=== PATIENT | female | born 1940 | race Caucasian/White ===

== ENCOUNTER 2017-11-01 16:48 | Inpatient (IN) ==
[2017-11-01 17:26] LABS: Basophils % 0.5 %; Eosinophils # 0.1 K/mcL (0.0-0.6); Eosinophils % 1.9 %; Hematocrit 37.5 % (35.3-44.9); Hemoglobin 11.8 g/dL (11.5-15.4); Immature Granulocytes % 0.1 % (0-4); Lymphocytes # 3.4 K/mcL (0.6-4.6); Lymphocytes % 45.5 %; Mean Corpuscular HGB Conc 31.5 g/dL (31.6-35.5); Mean Corpuscular Hemoglobin 29.4 pg (28.0-33.3); Mean Corpuscular Volume 93.3 fL (83.0-100.0); Mean Platelet Volume 11.1 fL (9.4-12.4); Monocytes # 0.8 K/mcL (0.0-1.3); Monocytes % 10.1 %; Neutrophils # 3.1 K/mcL (1.6-8.9); Platelet Count 143 K/mcL (140-400); Red Blood Count 4.02 M/mcL (3.82-4.97); Red Cell Distribution Width 13.6 % (11.5-14.5); Segmented Neutrophils % 41.9 %
[2017-11-01 18:00] LABS: BUN/Creatinine Ratio 59 (6-26); Blood Urea Nitrogen 42 mg/dL (8-23); Calcium 9.2 mg/dL (8.6-10.3); Carbon Dioxide 25 mEq/L (23-29); Chloride 108 mEq/L (98-107); Glucose 107 mg/dL (70-105); Osmolality,Calculated 299 (280-300); Potassium 4.3 mEq/L (3.5-5.1); Sodium 139 mEq/L (136-145); eGFR For African Americans > 60 (> 60); eGFR For Non-African Americans > 60 (> 60)
[2017-11-01 18:13] LABS: Thyroid Stimulating Hormone 2.242 mcIU/mL (0.340-5.600)
--- NOTE | 2017-11-01 18:29 | Emergency Department Note ---
Disposition Clinical Impression: Atrial fibrillation with RVR Disposition: Admitted As Inpatient Condition: Good General Adult HPI - General Chief complaint: ED Arrhythmia/Palpitations Stated complaint: abnormal EKG Time Seen by Provider: 11/01/17 18:06 Source: patient Limitations: no limitations Nursing Notes Reviewed: Yes Vital Signs Reviewed: Yes - History of Present Illness HPI Narrative: Patient presents today for evaluation of atrial fibrillation with RVR. The patient has a history of A. fib once in the past that was transient. Patient has been wearing a loop recorder for the last several months for evaluation of palpitations. As a October 25 her loop recorder was normal. She has had exertional dyspnea for the last couple of days. Was seen by PCP today and found to have an EKG with atrial fibrillation with RVR and a ventricular rate of 31. The patient states she has had some mild bilateral lower edema. Patient has not had chest pain or dyspnea at rest. On exam the patient is comfortable and in no distress. Pain Scale: 0 - Related Data Home Medications Medication Instructions Recorded Confirmed Fluticasone Propionate Nasal 1 spr NS HS PRN 06/14/16 11/01/17 [Flonase] Losartan Potassium [Cozaar] 50 mg PO QAM 06/14/16 11/01/17 Methocarbamol [Robaxin] 500 mg PO BID 06/14/16 11/01/17 Metoprolol [Lopressor] 25 mg PO BID 06/14/16 11/01/17 Promethazine [Phenergan] 25 mg PO HS PRN 06/14/16 11/01/17 amLODIPine [Norvasc] 5 mg PO QPM 06/14/16 11/01/17 cloNIDine HCl [CloNIDine HCl] 0.05 mg PO BID PRN 06/14/16 11/01/17 Acetaminophen w/Cod 300-30 mg 1 each PO Q6HR PRN 07/30/17 11/01/17 [Tylenol w/Codeine #3] Aspirin [Lo-Dose Aspirin EC] 81 mg PO DAILY 07/30/17 11/01/17 Gabapentin [Neurontin] 300 mg PO BID 11/01/17 11/01/17 Allergies Allergy/AdvReac Type Severity Reaction Status Date / Time lisinopril Allergy Cough Verified 06/13/16 06:45 Penicillins [PCN] Allergy Itching Verified 06/13/16 06:45 Pneumococcal Vaccine AdvReac Redness of Verified 07/30/17 13:49 Skin Review of Systems: CONSTITUTIONAL: No weight loss, fever, chills, weakness or fatigue. HEENT: Eyes: No visual changes. Ears, Nose, Throat: No hearing loss, difficulty talking or unable to swallow. SKIN: No rash or itching. CARDIOVASCULAR: No chest pain, chest pressure or chest discomfort. No palpitations or edema. RESPIRATORY: Dyspnea with exertion while walking up 2 flights of steps that she normally does not have issue with GASTROINTESTINAL: No anorexia, nausea, vomiting or diarrhea. No abdominal pain or blood. GENITOURINARY: No burning on urination or hematuria. NEUROLOGICAL: No headache, dizziness, syncope, paralysis, ataxia, numbness or tingling in the extremities. No change in bowel or bladder control. MUSCULOSKELETAL: No muscle pain, back pain, joint pain or stiffness. Past Medical History - Past Medical History Medical history: Reports: atrial fibrillation, hypertension Psychiatric history: Reports: no psych history GM history: Reports: no GM history - Social History Smoking Status: Never smoker Smokeless Tobacco Status: No Alcohol use: Reports: none Drug use: Reports: none Physical Exam General: Well appearing, nontoxic, no acute distress Head: Normocephalic Atraumatic Eyes: PERRL, EOMI ENT: Airway patent, no stridor Neck: supple, no meningismus Chest: Lungs clear to auscultation bilateral Cardiac: Irregular rate and rhythm, Abdomen: soft, nontender, nondistended; no guarding, rebound, or tenderness to percussion Musculoskeletal: Mild +1 edema to lower extremities bilaterally in the ankles Calves symmetric, nontender, no palpable cord Skin: No rash, normal skin tone Neuro: Alert and Oriented to person, place, and time; No focal deficit, CN 2-12 symmetric and intact - General Limitations: no limitations General appearance: alert Course - Reevaluation(s) Reevaluation #1: On reevaluation of the patient and further discussion with her her heart rate which did initially improve has jumped back into the low 100s. The patient will need to stay for further evaluation and management. - Consultations Consultation #1: Discussed case with Dr. Barrett as the patient is asymptomatic and heart rate has been controlled with metoprolol. The patient will be able to go home if her heart rate is controlled but closer to 80 bpm as anything higher that this is likely to bounce back. She may also benefit from admission for further evaluation of what could be considered new-onset A. fib as her other episode was quite some time ago. Patient may also benefit from inpatient stay for chemical or electrical cardioversion. Patient would need further evaluation by cardiology before determining these steps. After further discussion with her it does sound like there is more benefit to admission and outpatient management. We will discuss this with the patient and let her know what her options are. Did discuss benefit of Lovenox injection with cardiology. If renal function and labs are appropriate then safe to give. Consultation #2: Discussed with hospitalist, , patient accepted for admission. Vital Signs Temperature 98.5 F 11/01/17 16:54 Pulse Rate 141 11/01/17 16:54 Respiratory Rate 18 11/01/17 16:54 Blood Pressure 131/84 11/01/17 16:54 O2 Sat by Pulse Oximetry 98 11/01/17 16:54 Temperature 98.5 F 11/01/17 16:54 Pulse Rate 105 11/01/17 18:50 Respiratory Rate 13 11/01/17 21:31 Blood Pressure 117/88 11/01/17 21:31 O2 Sat by Pulse Oximetry 95 11/01/17 18:50 Oxygen Delivery Oxygen Delivery Room Air Medical Decision Making - Lab Data Result diagrams: 11/01/17 17:12 11/01/17 17:12 Lab Results 11/01/17 11/01/17 11/01/17 Range/Units 17:12 17:12 17:12 WBC 7.4 (4.3-11.1) K/mcL RBC 4.02 (3.82-4.97) M/mcL Hgb 11.8 (11.5-15.4) g/dL Hct 37.5 (35.3-44.9) % MCV 93.3 (83.0-100.0) fL MCH 29.4 (28.0-33.3) pg MCHC 31.5 L (31.6-35.5) g/dL RDW 13.6 (11.5-14.5) % Plt Count 143 (140-400) K/mcL MPV 11.1 (9.4-12.4) fL Immature Gran % 0.1 (0-4) % Seg Neutrophils % 41.9 % Lymphocytes % 45.5 % Monocytes % 10.1 % Eosinophils % 1.9 % Basophils % 0.5 % Neutrophils # 3.1 (1.6-8.9) K/mcL Lymphocytes # 3.4 (0.6-4.6) K/mcL Monocytes # 0.8 (0.0-1.3) K/mcL Eosinophils # 0.1 (0.0-0.6) K/mcL Basophils # 0.0 (0.0-0.2) K/mcL Sodium 139 (136-145) mEq/L Potassium 4.3 (3.5-5.1) mEq/L Chloride 108 H (98-107) mEq/L Carbon Dioxide 25 (23-29) mEq/L BUN 42 H (8-23) mg/dL Creatinine 0.71 (0.60-1.20) mg/dL Est GFR ( Amer) > 60 (> 60) Est GFR (Non-Af Amer) > 60 (> 60) BUN/Creatinine Ratio 59 H (6-26) Glucose 107 H (70-105) mg/dL Calculated Osmolality 299 (280-300) Calcium 9.2 (8.6-10.3) mg/dL Troponin I < 0.03 (< 0.04) ng/mL TSH 2.242 (0.340-5.600) mcIU/mL 11/01/17 Range/Units 20:50 WBC (4.3-11.1) K/mcL RBC (3.82-4.97) M/mcL Hgb (11.5-15.4) g/dL Hct (35.3-44.9) % MCV (83.0-100.0) fL MCH (28.0-33.3) pg MCHC (31.6-35.5) g/dL RDW (11.5-14.5) % Plt Count (140-400) K/mcL MPV (9.4-12.4) fL Immature Gran % (0-4) % Seg Neutrophils % % Lymphocytes % % Monocytes % % Eosinophils % % Basophils % % Neutrophils # (1.6-8.9) K/mcL Lymphocytes # (0.6-4.6) K/mcL Monocytes # (0.0-1.3) K/mcL Eosinophils # (0.0-0.6) K/mcL Basophils # (0.0-0.2) K/mcL Sodium (136-145) mEq/L Potassium (3.5-5.1) mEq/L Chloride (98-107) mEq/L Carbon Dioxide (23-29) mEq/L BUN (8-23) mg/dL Creatinine (0.60-1.20) mg/dL Est GFR ( Amer) (> 60) Est GFR (Non-Af Amer) (> 60) BUN/Creatinine Ratio (6-26) Glucose (70-105) mg/dL Calculated Osmolality (280-300) Calcium (8.6-10.3) mg/dL Troponin I < 0.03 (< 0.04) ng/mL TSH (0.340-5.600) mcIU/mL
[2017-11-01] MEDS ORDERED: *HR* Metoprolol 5 MG/5 ML VIAL IVP ONE (18:41)
[2017-11-01] MEDS: *HR* Metoprolol 5 MG/5 ML VIAL IVP SCH ×2 (18:44→18:49)
[2017-11-01] MEDS ORDERED: 0.9 % Sodium Chloride 1,000 ML IVC ONE (18:53)
--- NOTE | 2017-11-01 18:57 | Emergency Department Note ---
START Narrative - START START: I examined this patient and my medical decision-making was reviewed with the Resident Physician. I agree with the documented findings, disposition and treatment plan as described except to the extent set forth below. 77 yo F here for a fib with RVR has a loop recorder and follows with cardiology today noted her heart racing so came to ER and found to be in RVR she will be given lopressor check labs possible DC home; will consult with cardiology on baby ASA no cp, no sob.
[2017-11-01] MEDS ORDERED: Naloxone 0.4 MG/ML INJ IVP PRN (20:02)
[2017-11-01] MEDS ORDERED: *HR* Enoxaparin 40 MG/0.4 ML SYRINGE SQ STA (20:12)
--- NOTE | 2017-11-01 20:21 | Internal Med History&Physical ---
Date of Encounter: 11/01/17 Time of Encounter: 20:12 Assessment and Plan (1) Atrial fibrillation with RVR Current visit: Yes Status: Acute 77/F Background history of uncontrolled hypertension. Was evaluated by electrophysiology and loop recorder was placed for possible A. fib. In with atrial fibrillation with rapid ventricular rate. Ongoing palpitations present. Echocardiogram:12/2015: Patient infection 60%, moderate tricuspid regurgitation, mild to moderate dilated left atrium, mild mitral regurgitation Nuclear stress test: 12/2015: Perfusion imaging was negative for ischemia/infarct TSH: 10/2017: 2.24 Loop recorder: See below On examination: Mild pedal edema. No S3 and no abnormal murmur. Assessment: Atrial fibrillation with rapid ventricular rate with possible onset less than 24 hours ago. In view of mild to moderate dilated left atrium underlying valvular etiology cannot be ruled out. Plan: Admit as inpatient: Patient needs intravenous Cardizem. Cycle troponin Echocardiogram. Nothing by mouth from midnight. Cardiology consult. Cardizem drip: To start with 5 mg per hour and keep titrating to goal of a heart rate between 60 and 90. I understood from ER physician that, he spoke with cardiology and they probably have a plan for cardioversion tomorrow. Of note: I examined this patient in the emergency department room #19. Patient's son was sitting next to her. Plan of care explained to the patient at length. All questions answered (2) Hypertension Current visit: Yes Status: Acute Blood pressure is within acceptable range. At this point. We will resume home medications. We will keep a hold on clonidine. Qualifiers: Hypertension type: essential hypertension Qualified Code(s): I10 - Essential (primary) hypertension (3) DVT prophylaxis Current visit: Yes Status: Acute Lovenox Medical decision making: This patient has moderate to severe risk of worsening in spite of being on appropriate medication due to the underlying complex medical condition. Internal Medicine - H&P: HPI Chief complaint: Palpitations Admitted From: Emergency Dept Plans for Post Hospital Care: Home History of present illness: PCP: GENET Bianchi. Cardiology: Dr Hoover. EP: Dr mondragon Brief PMH: HTN, ? Paroxysmal Afib ( loop recorder inserted by Dr Mondragon), Surgery for degenerative cervical spine in 1999, HPI: Patient is known to have a hypertension which is very poorly controlled in spite of different antihypertensive medication. Patient went to primary care provider as she was feeling very weak and intermittent palpitations. EKG was done at the primary care physician's office for suggestive of a atrial fibrillation with rapid ventricular rate. Her ventricular rate was 130. Patient was sent to emergency room for further evaluation. Patient is known to cardiology Department. Loop recorder was placed by electrophysiology and till October 25 of this month it did not show any evidence of arrhythmia. Patient's symptoms started less than 24 hours ago. Patient denies nausea or vomiting shortness of breath abdominal pain or dizziness or diarrhea. Workup in the emergency room: Patient was evaluated in the emergency room. Basic labs were drawn. X-ray chest was not suggestive of any acute process. EKG was suggestive of atrial fibrillation with rapid ventricular rate. IV will metoprolol was given. Subcutaneous Lovenox 1 mg per KG was given as her 1 dose. Reason for admission: Atrial fibrillation with rapid ventricular rate which needs to be controlled with intravenous Cardizem and close monitoring. Patient might need cardioversion tomorrow by cardiology department. Family history: Strong family history of atrial fibrillation in first degree relatives. Past Med Surg Social Fam HX - Past Medical History Medical history: atrial fibrillation, hypertension Psychiatric history: no psych history - Social History Smoking Status: Never smoker Smokeless Tobacco Status: No Alcohol use: none Drug use: none Internal Medicine - H&P: Meds Fluticasone Propionate Nasal [Flonase] 1 spr NS DAILY PRN 06/14/16 [History] Losartan Potassium [Cozaar] 50 mg PO DAILY 06/14/16 [History] Methocarbamol [Robaxin] 500 mg PO HS 06/14/16 [History] Metoprolol [Lopressor] 25 mg PO BID 06/14/16 [History] Promethazine [Phenergan] 25 mg PO HS PRN 06/14/16 [History] amLODIPine [Norvasc] 5 mg PO DAILY 06/14/16 [History] cloNIDine HCl [CloNIDine HCl] 0.5 tab PO BID PRN 06/14/16 [History] Acetaminophen w/Cod 300-30 mg [Tylenol w/Codeine #3] 1 each PO Q6HR PRN [History] Aspirin [Lo-Dose Aspirin EC] 81 mg PO DAILY 07/30/17 [History] Gabapentin [Neurontin] 300 mg PO BID 11/01/17 [History] 3 Allergy/AdvReac Type Severity Reaction Status Date / Time lisinopril Allergy Cough Verified 06/13/16 06:45 Penicillins [PCN] Allergy Itching Verified 06/13/16 06:45 Pneumococcal Vaccine AdvReac Redness of Verified 07/30/17 13:49 Skin All Systems PM: A 10-system review of systems was performed and is negative for pertinent findings except as documented above in the HPI. - Constitutional Constitutional: no chills, no fever(s), no night sweats - EENT Eyes: no change in vision, no discharge, no pain, no photophobia Ears: no ear discharge, no ear pain, no tinnitus Nose, mouth and throat: no dysphagia, no nasal discharge, no neck pain, no sore throat - Cardiovascular Cardiovascular ROS IM: edema, palpitations, no chest pain, no diaphoresis, no dyspnea, no lightheadedness, no syncope - Respiratory Respiratory: no cough, no dyspnea, no wheezing, no excessive phlegm production - Gastrointestinal Gastrointestinal: no abdominal pain, no diarrhea, no hematemesis, no hematochezia, no melena, no nausea, no vomiting - Genitourinary Genitourinary: no change in urinary stream, no dysuria, no flank pain, no hematuria - Musculoskeletal Musculoskeletal ROS IM: no numbness, no tingling - Integumentary Integumentary IM: no rash, no unusual bruising - Neurological Neurological ROS: no confusion, no convulsions, no focal weakness, no numbness, no tingling, no tremor(s) - Hematologic/Lymphatic Hematologic/Lymphatic: no easy bruising - Constitutional Vitals: Temp Pulse Resp BP Pulse Ox 98.5 F 105 16 125/90 95 11/01/17 16:54 11/01/17 18:50 11/01/17 18:50 11/01/17 18:50 11/01/17 18:50 General appearance: Present: A&O X 3, pleasant, no acute distress, answers questions appropriately - Head Head exam: Present: atraumatic, normocephalic - Eye Eye exam: Present: PERRL, conjuntiva pink, sclera anicteric Pupils: Present: PERRL - Neck Neck exam general surgery: Present: supple, trachea midline. Absent: lymphadenopathy - Respiratory Respiratory exam: Present: CTAB. Absent: accessory muscle use, rales, rhonchi, wheezes - Cardiovascular Cardiovascular exam: Present: RRR, +S1, +S2. Absent: diastolic murmur, gallop, rubs, systolic murmur - GI/Abdominal GI/Abdominal exam: Present: normal bowel sounds, soft, no peritoneal signs. Absent: distended, tenderness - Extremities Exam Extremities exam: Present: warm, radial pulses palpable and symmetrical. Absent : calf tenderness, cyanotic, pedal edema - Neurological Exam Neurological exam: Present: CN II-XII intact, oriented X3, no focal deficits. Absent: pronater drift, facial droop, speech deficit - Skin Skin exam: Present: dry, intact Internal Med - H&P Results - Labs CBC & Chem 7: 11/01/17 17:12 11/01/17 17:12 Labs: Short CBC 11/01/17 Range/Units 17:12 WBC 7.4 (4.3-11.1) K/mcL Hgb 11.8 (11.5-15.4) g/dL Hct 37.5 (35.3-44.9) % Plt Count 143 (140-400) K/mcL Neutrophils # 3.1 (1.6-8.9) K/mcL BMP 11/01/17 17:12 Sodium 139 Potassium 4.3 Chloride 108 H Carbon Dioxide 25 BUN 42 H Creatinine 0.71 Glucose 107 H Calcium 9.2 Cardiac Enzymes 11/01/17 Range/Units 17:12 Troponin I < 0.03 (< 0.04) ng/mL - Impressions ITS Impressions Chest X-Ray 11/01/17 16:59 IMPRESSION: No acute cardiopulmonary abnormality. D/ / Catracho Rendon / Catracho Rendon Interpreting Provider: Catracho Rendon
[2017-11-01] MEDS ORDERED: 0.9 % Sodium Chloride 500 ML ONE (22:24)
[2017-11-01] MEDS: Methocarbamol 500 MG TABLET PO SCH (22:36)
[2017-11-01] MEDS: Gabapentin 100 MG CAPSULE PO SCH (22:36)
[2017-11-02 04:05] LABS: Bilirubin,Urine Negative (Negative); Blood,Urine Negative (Negative); Clarity,Urine Clear (Clear); Color,Urine Yellow (Yellow); Glucose,Urine (UA) Normal (Normal); Ketones,Urine Trace mg/dL (Negative); Leukocyte Esterase,Urine Negative (Negative); Nitrite,Urine Negative (Negative); PH,Urine 5.5 pH Units (5.0-8.0); Protein,Urine Trace mg/dL (Neg-Trace); Specific Gravity,Urine 1.027 (1.010-1.025); Urobilinogen,Urine Normal (Normal)
[2017-11-02 04:08] LABS: Bacteria,Urine None Seen per hpf (None-Few); Hyaline Casts,Urine None Seen per lpf (None-Few); RBC,Urine 0-3 per hpf (0-3); Squamous Epithelial Cell,Urine None Seen per lpf (None-Few); WBC,Urine 0-3 per hpf (0-3)
[2017-11-02 04:44] LABS: Basophils # 0.1 K/mcL (0.0-0.2); Basophils % 0.8 %; Eosinophils # 0.1 K/mcL (0.0-0.6); Eosinophils % 2.2 %; Hematocrit 33.1 % (35.3-44.9); Hemoglobin 10.6 g/dL (11.5-15.4); Immature Granulocytes % 0.2 % (0-4); Lymphocytes % 50.5 %; Mean Corpuscular Hemoglobin 29.7 pg (28.0-33.3); Mean Corpuscular Volume 92.7 fL (83.0-100.0); Mean Platelet Volume 11.9 fL (9.4-12.4); Monocytes # 0.7 K/mcL (0.0-1.3); Monocytes % 11.8 %; Neutrophils # 2.1 K/mcL (1.6-8.9); Nucleated Red Blood Cells 0.3 /100 WBC (0); Platelet Count 125 K/mcL (140-400); Red Blood Count 3.57 M/mcL (3.82-4.97); Red Cell Distribution Width 13.6 % (11.5-14.5); Segmented Neutrophils % 34.5 %
[2017-11-02 04:49] LABS: INR 1.2; Prothrombin Time 13.4 Seconds (9.4-12.1)
[2017-11-02 05:10] LABS: Alanine Aminotransferase 27 Units/L (7-52); Albumin 3.5 g/dL (3.5-5.7); Albumin/Globulin Ratio 1.9 (1.1-2.2); Alkaline Phosphatase 61 Units/L (34-104); Aspartate Amino Transferase 23 Units/L (13-39); BUN/Creatinine Ratio 57 (6-26); Blood Urea Nitrogen 33 mg/dL (8-23); Calcium 8.6 mg/dL (8.6-10.3); Carbon Dioxide 23 mEq/L (23-29); Chloride 111 mEq/L (98-107); Chol/HDL Ratio 2.5 (0-4.9); Cholesterol 126 mg/dL (< 200); Globulin 1.8 g/dL (2.4-3.5); Glucose 94 mg/dL (70-105); HDL Cholesterol 51 mg/dL (40-59); LDL Cholesterol,Calculated 63 mg/dL (0-99); Osmolality,Calculated 297 (280-300); Phosphorous 3.2 mg/dL (2.7-4.5); Potassium 3.8 mEq/L (3.5-5.1); Sodium 140 mEq/L (136-145); Total Protein 5.3 g/dL (6.4-8.9); Triglycerides 58 mg/dL (< 150); eGFR For African Americans > 60 (> 60); eGFR For Non-African Americans > 60 (> 60)
[2017-11-02] MEDS: Aspirin Enteric Coated 81 MG Tablet PO SCH (08:28)
[2017-11-02] MEDS: amLODIPine 5 MG TABLET PO SCH (08:28)
--- NOTE | 2017-11-02 10:25 | Internal Med Progress Note ---
Date of Encounter: 11/02/17 Time of Encounter: 10:22 - Assessment and plan (1) Atrial fibrillation with RVR Current Visit: Yes Status: Acute Assessment and plan: HR overnight and this AM ranging 100-120. Off cardizem drip. Troponin negative x3, TSH wnl, Last stress (nuclear) 2015, negative for ischemia Cardiology consulted, recommendations appreciated On lopressor 25 mg PO bid Lopressor 5 mg IV prn received 1 mg/kg dose of lovenox in ED (2) Hypertension Current Visit: Yes Status: Acute Assessment and plan: Currently normal range Norvasc 5 mg daily Losartan 50 mg daily Metoprolol 25 mg PO Hold clonidine Qualifiers: Hypertension type: essential hypertension Qualified Code(s): I10 - Essential (primary) hypertension (3) DVT prophylaxis Current Visit: Yes Status: Acute Assessment and plan: Lovenox 40 mg daily. - Subjective Interval history: No acute events overnight. She denies chest pain, sob, n/v, diaphoresis. Palpitations resolved, edema resolved. - Constitutional Vitals: Temp Pulse Resp BP Pulse Ox 97.7 F 121 18 110/68 90 11/02/17 07:46 11/02/17 07:46 11/02/17 07:46 11/02/17 07:46 11/02/17 07:46 General appearance: Present: A&O X 3, pleasant, no acute distress, answers questions appropriately - Head Head exam: Present: atraumatic, normocephalic - Eye Eye exam: Present: PERRL, conjuntiva pink, sclera anicteric Pupils: Present: PERRL - Neck Neck exam general surgery: Present: supple, trachea midline. Absent: lymphadenopathy - Respiratory Respiratory exam: Present: CTAB. Absent: accessory muscle use, rales, rhonchi, wheezes - Cardiovascular Cardiovascular exam: Present: irregular rhythm, +S1, +S2. Absent: diastolic murmur, gallop, rubs, systolic murmur - GI/Abdominal GI/Abdominal exam: Present: normal bowel sounds, soft, no peritoneal signs. Absent: distended, tenderness - Extremities Exam Extremities exam: Present: warm, radial pulses palpable and symmetrical. Absent : calf tenderness, cyanotic, pedal edema - Neurological Exam Neurological exam: Present: CN II-XII intact, oriented X3, no focal deficits. Absent: pronater drift, facial droop, speech deficit - Skin Skin exam: Present: dry, intact Internal Medicine: Result - Labs CBC & Chem 7: 11/02/17 04:01 11/02/17 04:01 Labs: Short CBC 11/02/17 Range/Units 04:01 WBC 6.0 (4.3-11.1) K/mcL Hgb 10.6 L (11.5-15.4) g/dL Hct 33.1 L (35.3-44.9) % Plt Count 125 L (140-400) K/mcL Neutrophils # 2.1 (1.6-8.9) K/mcL BMP 11/02/17 04:01 Sodium 140 Potassium 3.8 Chloride 111 H Carbon Dioxide 23 BUN 33 H Creatinine 0.58 L Glucose 94 Calcium 8.6 Cardiac Enzymes 11/02/17 Range/Units 04:01 Troponin I < 0.03 (< 0.04) ng/mL Liver Function 11/02/17 Range/Units 04:01 Total Bilirubin 1.0 (0.3-1.0) mg/dL AST 23 (13-39) Units/L ALT 27 (7-52) Units/L Alkaline Phosphatase 61 (34-104) Units/L Albumin 3.5 (3.5-5.7) g/dL Urine 11/02/17 Range/Units 03:40 Urine Color Yellow (Yellow) Urine Clarity Clear (Clear) Urine pH 5.5 (5.0-8.0) pH Units Ur Specific [place] 1.027 H (1.010-1.025) Urine Protein Trace (Neg-Trace) mg/dL Urine Glucose (UA) Normal (Normal) mg/dL - ABG Interpretation ABG results: PT/INR, D-dimer PT 13.4 Seconds (9.4-12.1) H 11/02/17 04:01 Consult Discharge Plan - Plan Referrals: Miles,Lisa Mckeon CNP [Primary Care Provider] -
--- NOTE | 2017-11-02 13:22 | Cardiology Consult Note ---
Date of Encounter: 11/02/17 Time of Encounter: 13:16 Assessment and Plan (1) PAF (paroxysmal atrial fibrillation) Current Visit: Yes Status: Acute Patient with a history of palpitations and reported PSVT/atrial tachycardia. ECG on this admission demonstrates atrial fibrillation with RVR. Chads vasc score is 3 (HTN, Age, FM). We discussed the different treatment options, including rate versus rhythm control. She is very active and states that the increasing palpitations have had an impact on her quality of life. She prefers a rhythm control strategy. We discussed the risks, benefits, and alternatives to anticoagulation. She is agreeable to proceed. Will start Rythmol. We compared Coumadin to be novel agents. She prefers a novel agent. Will cuenca check. Of note, prior stress test was negative for ischemia. Most recent TTE demonstrated normal LV function. 2 years ago. Repeat a TTE. Discussion w patient/family: The assessment and plan as outlined above was discussed with the patient and/or family members who expressed understanding and agreement. All questions were answered. Thank you for involving us in the care of your patient. Please call with any questions. History of Present Illness Consult date: 11/02/17 Requesting physician: Dharmesh Nicole Consult reason: AF Chief complaint: Palpitations History of present illness: Ms. Reyes is a 77 year old female and paroxysmal atrial fibrillation. Follows with Dr. Hoover. Implantable loop recorder previously placed. Presents with complaints of increasing palpitations. States duration of symptoms have also increased. Denies lightheadedness, near syncope, or syncope. Denies chest discomfort. Upon my evaluation this morning, atrial fibrillation with RVR noted. Patient previously declined anticoagulation, but states she is now agreeable. Previous testing: Exercise nuclear stress test 12/2015: Negative for ischemia or prior infarct. Gated EF >70%. TTE 12/28/2015: LVEF 60%. Normal RV size and function. Mild to moderately dilated left atrium. Mild MR. Moderate TR. No evidence of pulmonary hypertension. Past Med Surg Social Fam HX - Past Medical History Medical history: atrial fibrillation, hypertension Psychiatric history: no psych history - Social History Smoking Status: Never smoker Smokeless Tobacco Status: No Alcohol use: none Drug use: none - Family History Mother Hx Family Cardiac Disorders: Yes (afib, mitral valve prolapse) Father Hx Family Cardiac Disorders: Yes Hx Family Endocrine Disorder: Yes Medications and Allergies Fluticasone Propionate Nasal [Flonase] 1 spr NS HS PRN 06/14/16 [History] Losartan Potassium [Cozaar] 50 mg PO QAM 06/14/16 [History] Methocarbamol [Robaxin] 500 mg PO BID 06/14/16 [History] Metoprolol [Lopressor] 25 mg PO BID 06/14/16 [History] Promethazine [Phenergan] 25 mg PO HS PRN 06/14/16 [History] amLODIPine [Norvasc] 5 mg PO QPM 06/14/16 [History] cloNIDine HCl [CloNIDine HCl] 0.05 mg PO BID PRN 06/14/16 [History] Acetaminophen w/Cod 300-30 mg [Tylenol w/Codeine #3] 1 each PO Q6HR PRN [History] Aspirin [Lo-Dose Aspirin EC] 81 mg PO DAILY 07/30/17 [History] Gabapentin [Neurontin] 300 mg PO BID 11/01/17 [History] 3 Allergy/AdvReac Type Severity Reaction Status Date / Time lisinopril Allergy Cough Verified 06/13/16 06:45 Penicillins [PCN] Allergy Itching Verified 06/13/16 06:45 Pneumococcal Vaccine AdvReac Redness of Verified 07/30/17 13:49 Skin All Systems Review: A 10-system review of systems was performed and is negative for pertinent findings except as documented above in the HPI. - Cardiovascular Cardiovascular: as per HPI, palpitations, rapid heart rate Physical Examination Vital Signs, Last 4 Hours Temp Pulse Resp BP Pulse Ox 11/02/17 11:42 98.2 F 108 18 100/50 92 General: Conversant, No Apparent Distress HEENT: Atraumatic, Normocephaly, Mucus Membranes Moist Neck: No JVD, Normal carotid pulses Cardiac: Other (Irregular rate and rhythm. Loud systolic murmur noted) Lungs: Normal Breath Sounds, No Wheeze, Rales, Rhonchi Neuro: Alert and responsive, No focal deficits noted Abdomen: Soft, Non-Tender Skin: No rashes noted on visualized skin Musculoskeletal: No Chest Wall Tenderness Extremities: No Clubbing, No Cyanosis, No Edema Results 11/02/17 04:01 11/02/17 04:01 Lab Results 02/11/02/17 11/02/17 04:01 04:01 04:01 WBC 6.0 Hgb 10.6 L Hct 33.1 L Plt Count 125 L INR 1.2 APTT 34.0 Sodium Potassium Chloride Carbon Dioxide BUN Creatinine Glucose Calcium Magnesium Total Bilirubin AST ALT Alkaline Phosphatase Troponin I < 0.03 B-Natriuretic Peptide 11/02/17 11/02/17 11/02/17 04:01 04:01 09:46 WBC Hgb Hct Plt Count INR APTT Sodium 140 Potassium 3.8 Chloride 111 H Carbon Dioxide 23 BUN 33 H Creatinine 0.58 L Glucose 94 Calcium 8.6 Magnesium 2.0 Total Bilirubin 1.0 AST 23 ALT 27 Alkaline Phosphatase 61 Troponin I < 0.03 B-Natriuretic Peptide 501 H - Imaging and Cardiology Stress Test: report reviewed Echo: report reviewed Consult Discharge Plan - Plan Referrals: Carlos Chao MD [Partnered Physician] - 12/05/17 10:30 am Aquino,Lisa Mckeon CNP [Primary Care Provider] -
[2017-11-02] MEDS: *HR* Metoprolol 5 MG/5 ML VIAL IVP SCH (16:57)
[2017-11-02] MEDS: *HR* Enoxaparin 60 MG/0.6 ML SYRINGE SQ SCH (16:59)
[2017-11-02] MEDS ORDERED: *HR* Rivaroxaban 10 MG TABLET PO SCH (17:00)
[2017-11-02] MEDS ORDERED: Warfarin perPT PO PRN (18:00)
[2017-11-02] MEDS ORDERED: *HR* Warfarin 2.5 MG TABLET PO ONE (18:00)
[2017-11-02] MEDS: Gabapentin 100 MG CAPSULE PO SCH (19:57)
[2017-11-02] MEDS: Methocarbamol 500 MG TABLET PO SCH (19:57)
[2017-11-03 04:11] LABS: INR 1.3; Prothrombin Time 13.6 Seconds (9.4-12.1)
[2017-11-03] MEDS: *HR* Enoxaparin 60 MG/0.6 ML SYRINGE SQ SCH ×2 (06:10→18:36)
[2017-11-03] MEDS: amLODIPine 5 MG TABLET PO SCH (08:16)
[2017-11-03] MEDS: Aspirin Enteric Coated 81 MG Tablet PO SCH (08:16)
--- NOTE | 2017-11-03 12:20 | Cardiology Progress Note ---
Date of Encounter: 11/03/17 Time of Encounter: 12:16 Assessment and Plan (1) PAF (paroxysmal atrial fibrillation) Current Visit: Yes Status: Acute ECG on this admission demonstrates atrial fibrillation with RVR. Chads Vasc score is 3 (HTN, Age, FM). We discussed the different treatment options, including rate versus rhythm control. She is very active and states that the increasing palpitations have had an impact on her quality of life. She prefers a rhythm control strategy. Moderately dilated LA. Normal LVEF. Continue Rhythmol. Continue Lovenox to Coumadin. Continue to monitor throughout the weekend. If needed, plan for cardioversion (MANI guided) Sunday. Thanks, Max Bernal DO, FACC Discussion w patient/family: The assessment and plan as outlined above was discussed with the patient and/or family members who expressed understanding and agreement. All questions were answered. Thank you for involving us in the care of your patient. Please call with any questions. Subjective Principal diagnosis: PAF Interval history: Atrial fibrillation continues. No chest pain reported. No lightheadedness, near syncope, or syncope. Seems to be tolerating Rhythmol. Coumadin started. Objective Vital Signs, Last 4 Hours Temp Pulse Resp BP Pulse Ox 11/03/17 11:26 98.2 F 83 16 112/66 93 General: Conversant, No Apparent Distress HEENT: Atraumatic, Normocephaly, Mucus Membranes Moist Neck: No JVD Cardiac: Normal S1 and S2, No Murmur, Other (Irregular rate and rhythm) Lungs: Normal Breath Sounds, No Wheeze, Rales, Rhonchi Neuro: Alert and responsive, No focal deficits noted Abdomen: Soft, Non-Tender Skin: No rashes noted on visualized skin Musculoskeletal: No Chest Wall Tenderness Extremities: No Clubbing, No Cyanosis, No Edema Results 11/02/17 04:01 11/02/17 04:01 Lab Results 11/03/17 02:57 INR 1.3 - Imaging and Cardiology Echo: report reviewed - EKG Interpretation EKG results cardiology: personally reviewed Consult Discharge Plan - Plan Referrals: Carlos Chao MD [Partnered Physician] - 12/05/17 10:30 am Aquino,Lisa Mckeon CNP [Primary Care Provider] - 11/05/17 3:00 pm
--- NOTE | 2017-11-03 17:39 | Internal Med Progress Note ---
Date of Encounter: 11/03/17 Time of Encounter: 17:37 - Assessment and plan (1) Atrial fibrillation with RVR Current Visit: Yes Status: Acute Assessment and plan: HR overnight and this AM ranging 100-120. Off cardizem drip. Troponin negative x3, TSH wnl, Last stress (nuclear) 2015, negative for ischemia Cardiology consulted, recommendations appreciated - Metoprolol 25 mg BID - Rythmol started 150 mg PO Q8H - Lovenox bridge to coumadin (2) Hypertension Current Visit: Yes Status: Acute Assessment and plan: Currently normal range Norvasc 5 mg daily Losartan 50 mg daily Metoprolol 25 mg PO Hold clonidine Qualifiers: Hypertension type: essential hypertension Qualified Code(s): I10 - Essential (primary) hypertension (3) DVT prophylaxis Current Visit: Yes Status: Acute Assessment and plan: Lovenox 40 mg daily. - Subjective Interval history: No acute events overnight. She denies chest pain, sob, n/v, diaphoresis. Edema stable - Constitutional Vitals: Temp Pulse Resp BP Pulse Ox 98.1 F 97 18 101/53 94 11/03/17 16:54 11/03/17 16:54 11/03/17 16:54 11/03/17 16:54 11/03/17 16:54 General appearance: Present: A&O X 3, pleasant, no acute distress, obese, answers questions appropriately Exam: CVS: irregular rate/rhythm Lungs: decreased breath sounds, rales throughout Abd: truncal obesity Ext: 1+ bipedal edema Internal Medicine: Result - Labs CBC & Chem 7: 11/02/17 04:01 11/02/17 04:01 - ABG Interpretation ABG results: PT/INR, D-dimer PT 13.6 Seconds (9.4-12.1) H 11/03/17 02:57 - Impressions Impressions Echocardiogram 11/02/17 20:16 Impressions: LVEF 60-65%. Normal LV chamber size, wall thickness and function. Indeterminate diastolic function. Normal right ventricular structure and function. No evidence of pulmonary hypertension. Mild tricuspid regurgitation. Left Ventricular Wall Motion: Rest Echo Findings All wall segments showed normal motion. Findings: Study Quality * Technically adequate exam. ECG Findings * Atrial fibrillation. Left Ventricle * LVEF 60-65%. * Normal LV chamber size, wall thickness and function. * Indeterminate diastolic function. Right Ventricle * Normal right ventricular structure and function. Left Atrium * Moderately dilated left atrium. Right Atrium * Severely dilated right atrium. Interatrial Septum * No evidence of PFO by color Doppler. Aortic Valve * Aortic valve not well visualized. * No aortic regurgitation. * No aortic stenosis. Mitral Valve * Normal mitral valve structure and function. * No mitral stenosis. * Trace mitral regurgitation. Tricuspid Valve * Normal tricuspid valve structure and function. * Mild tricuspid regurgitation. * No evidence of pulmonary hypertension. Pulmonic Valve * Pulmonic valve is not well visualized. * No pulmonic regurgitation. Aorta * Normally sized aortic root. Pericardium * The pericardium appears normal. IVC * Normal IVC dimensions and inspiratory collapse. Pulmonary Artery * Normal visualized portions of the main pulmonary artery. Consult Discharge Plan - Plan Referrals: Carlos Chao MD [Partnered Physician] - 12/05/17 10:30 am Lisa Aquino CNP [Primary Care Provider] - 11/05/17 3:00 pm
[2017-11-03] MEDS ORDERED: *HR* Warfarin 2.5 MG TABLET PO ONE (18:00)
[2017-11-03] MEDS: *HR* Metoprolol 5 MG/5 ML VIAL IVP SCH (18:35)
[2017-11-03] MEDS: Gabapentin 100 MG CAPSULE PO SCH (20:23)
[2017-11-03] MEDS: Methocarbamol 500 MG TABLET PO SCH (20:23)
[2017-11-04 04:23] LABS: Basophils % 0.5 %; Eosinophils # 0.2 K/mcL (0.0-0.6); Eosinophils % 2.2 %; Hematocrit 34.9 % (35.3-44.9); Hemoglobin 10.9 g/dL (11.5-15.4); Immature Granulocytes % 0.1 % (0-4); Lymphocytes # 4.2 K/mcL (0.6-4.6); Lymphocytes % 54.5 %; Mean Corpuscular HGB Conc 31.2 g/dL (31.6-35.5); Mean Corpuscular Hemoglobin 29.4 pg (28.0-33.3); Mean Corpuscular Volume 94.1 fL (83.0-100.0); Mean Platelet Volume 11.4 fL (9.4-12.4); Monocytes # 0.8 K/mcL (0.0-1.3); Monocytes % 9.9 %; Neutrophils # 2.5 K/mcL (1.6-8.9); Nucleated Red Blood Cells 0.5 /100 WBC (0); Platelet Count 138 K/mcL (140-400); Red Blood Count 3.71 M/mcL (3.82-4.97); Red Cell Distribution Width 13.7 % (11.5-14.5); Segmented Neutrophils % 32.8 %
[2017-11-04 04:28] LABS: INR 1.3; Prothrombin Time 13.8 Seconds (9.4-12.1)
[2017-11-04] MEDS: *HR* Enoxaparin 60 MG/0.6 ML SYRINGE SQ SCH ×2 (05:03→17:21)
[2017-11-04 05:18] LABS: BUN/Creatinine Ratio 35 (6-26); Blood Urea Nitrogen 30 mg/dL (8-23); Calcium 8.8 mg/dL (8.6-10.3); Carbon Dioxide 26 mEq/L (23-29); Chloride 112 mEq/L (98-107); Glucose 88 mg/dL (70-105); Osmolality,Calculated 300 (280-300); Sodium 142 mEq/L (136-145); eGFR For African Americans > 60 (> 60); eGFR For Non-African Americans > 60 (> 60)
[2017-11-04] MEDS: Aspirin Enteric Coated 81 MG Tablet PO SCH (08:26)
[2017-11-04] MEDS: amLODIPine 5 MG TABLET PO SCH (08:39)
--- NOTE | 2017-11-04 11:39 | Cardiology Progress Note ---
Date of Encounter: 11/04/17 Time of Encounter: 08:00 Assessment and Plan (1) PAF (paroxysmal atrial fibrillation) Current Visit: Yes Status: Acute Per cardiology: -ECG on this admission demonstrates atrial fibrillation with RVR, QRS 69ms. -Chads Vasc score is 3 (HTN, Age, FM). On lovenox and coumadin. INR 1.3. -Moderately dilated LA. Normal LVEF. -Continue Rhythmol. Started on rhythmol and is s/p 6 total doses. -ECG today with a.fib, QRS 78ms. -Continue Lovenox to Coumadin. -NPO after midnight. -If needed, plan for cardioversion (MANI guided) Sunday. Discussion w patient/family: The assessment and plan as outlined above was discussed with the patient who expressed understanding and agreement. All questions were answered. Thank you for involving us in the care of your patient. Please call with any questions. Discussed and reviewed with . Subjective Principal diagnosis: PAF Interval history: Patient states she feel ok today. Denies complaints. Objective Vital Signs, Last 4 Hours Vital Signs Temperature 98.5 F 11/01/17 16:54 Pulse Rate 141 11/01/17 16:54 Respiratory Rate 18 11/01/17 16:54 Blood Pressure 131/84 11/01/17 16:54 O2 Sat by Pulse Oximetry 98 11/01/17 16:54 Temperature 97.9 F 11/04/17 06:54 Pulse Rate 116 11/04/17 08:38 Respiratory Rate 16 11/04/17 06:54 Blood Pressure 108/70 11/04/17 08:38 O2 Sat by Pulse Oximetry 92 11/04/17 06:54 Oxygen Delivery Oxygen Delivery Room Air General: Conversant, No Apparent Distress HEENT: Atraumatic, Normocephaly, Mucus Membranes Moist Neck: No JVD, Normal carotid pulses Cardiac: Normal S1 and S2, No Murmur, Other (Irregularly irregular) Lungs: Normal Breath Sounds, No Wheeze, Rales, Rhonchi Neuro: Alert and responsive, No focal deficits noted Abdomen: Soft, Non-Tender Skin: No rashes noted on visualized skin Musculoskeletal: No Chest Wall Tenderness Extremities: No Clubbing, No Cyanosis, No Edema, Normal Pulses Results 11/04/17 03:37 11/04/17 03:37 Lab Results Active Medications Amlodipine Besylate (Norvasc) [address] [facility] PRN Reason: Protocol Stop: 05/04/18 09:01 Last Admin: 11/04/17 08:39 Dose: 5 mg Aspirin (Aspirin Ec) [address] [facility] Stop: 05/04/18 09:01 Last Admin: 11/04/17 08:26 Dose: 81 mg Enoxaparin Sodium (Lovenox) 50 mg 1 mg/kg (50 mg) SQ Q12HR JARAD PRN Reason: Protocol Stop: 05/04/18 18:01 Last Admin: 11/04/17 05:03 Dose: 50 mg Gabapentin (Neurontin) [address] [facility] Stop: 05/03/18 21:01 Last Admin: 11/03/17 20:23 Dose: 200 mg Losartan Potassium (Cozaar) [address] [facility] Stop: 05/04/18 09:01 Last Admin: 11/04/17 08:39 Dose: 50 mg Methocarbamol (Robaxin) [address] [facility] Stop: 05/03/18 21:01 Last Admin: 11/03/17 20:23 Dose: 500 mg Metoprolol Tartrate (Lopressor) [address] [facility] Stop: 05/03/18 21:01 Last Admin: 11/04/17 08:39 Dose: 25 mg Naloxone HCl (Narcan) 0.4 mg IVP Q2MIN PRN PRN Reason: SEE COMMENTS Stop: 05/03/18 20:03 Propafenone HCl (Rhythmol) [address] [facility] Stop: 05/04/18 14:01 Last Admin: 11/04/17 05:03 Dose: 150 mg Warfarin Sodium (Coumadin Perpt) 1 each PO DAILY@1800 PRN PRN Reason: SEE COMMENTS Stop: 05/04/18 18:01 - Imaging and Cardiology Chest Xray: report reviewed Echo: report reviewed - EKG Interpretation EKG results cardiology: other (Telemetry reviewed with average HR previous 12 hours noted to be 94, atrial fibrillation. PVCs noted.) Consult Discharge Plan - Plan Referrals: Carlos Chao MD [Partnered Physician] - 12/05/17 10:30 am Aquino,Lisa Mckeon CNP [Primary Care Provider] - 11/05/17 3:00 pm
--- NOTE | 2017-11-04 17:40 | Electrocardiograph Report ---
[place] [id number] Test Date: 2017-11-01 Pat Name: Amaya Reyes Department: 102 Room: 3B48 Gender: F Experimental Technician: Trina : 1940 Requested By: Kimberly See Order Number: [id number] Reading MD: Tata Barrett Measurements Intervals [place] Rate: 131 P: CO: 0 QRS: 39 QRSD: 69 T: 2 QT: 292 QTc: 369 Interpretive Statements ATRIAL FIBRILLATION WITH RAPID VENTRICULAR RESPONSE MINIMAL ST DEPRESSION [0.025+ mV ST DEPRESSION] ABNORMAL RHYTHM ECG Electronically Signed On 11-04-2017 17:38:50 EST by Tata Barrett
[2017-11-04] MEDS ORDERED: *HR* Warfarin 2.5 MG TABLET PO ONE (18:00)
--- NOTE | 2017-11-04 20:06 | Internal Med Progress Note ---
Date of Encounter: 11/04/17 Time of Encounter: 15:03 - Assessment and plan (1) Atrial fibrillation with RVR Current Visit: Yes Status: Acute Assessment and plan: HR overnight and this AM ranging 100-120. Off cardizem drip. Troponin negative x3, TSH wnl, Last stress (nuclear) 2015, negative for ischemia Cardiology consulted, recommendations appreciated - Metoprolol 25 mg BID - Rythmol started 150 mg PO Q8H - Lovenox bridge to coumadin NPO at midnight for possible MANI cardioversion tomorrow (2) Hypertension Current Visit: Yes Status: Acute Assessment and plan: Currently normal range Norvasc 5 mg daily Losartan 50 mg daily Metoprolol 25 mg PO Hold clonidine Qualifiers: Hypertension type: essential hypertension Qualified Code(s): I10 - Essential (primary) hypertension (3) DVT prophylaxis Current Visit: Yes Status: Acute Assessment and plan: Lovenox bridging to coumadin - Subjective Interval history: No acute events overnight. She denies chest pain, sob, n/v, diaphoresis. - Constitutional Vitals: Temp Pulse Resp BP Pulse Ox 97.6 F 77 16 101/67 96 11/04/17 16:07 11/04/17 16:07 11/04/17 16:07 11/04/17 16:07 11/04/17 16:07 General appearance: Present: A&O X 3, pleasant, no acute distress, answers questions appropriately - Head Head exam: Present: atraumatic, normocephalic - Eye Eye exam: Present: PERRL, conjuntiva pink, sclera anicteric Pupils: Present: PERRL - Neck Neck exam general surgery: Present: supple, trachea midline. Absent: lymphadenopathy - Respiratory Respiratory exam: Present: CTAB. Absent: accessory muscle use, rales, rhonchi, wheezes - Cardiovascular Cardiovascular exam: Present: irregular rhythm, +S1, +S2. Absent: diastolic murmur, gallop, rubs, systolic murmur - GI/Abdominal GI/Abdominal exam: Present: normal bowel sounds, soft, no peritoneal signs. Absent: distended, tenderness - Extremities Exam Extremities exam: Present: warm, radial pulses palpable and symmetrical. Absent : calf tenderness, cyanotic, pedal edema - Neurological Exam Neurological exam: Present: CN II-XII intact, oriented X3, no focal deficits. Absent: pronater drift, facial droop, speech deficit - Skin Skin exam: Present: dry, intact Internal Medicine: Result - Labs CBC & Chem 7: 11/04/17 03:37 11/04/17 03:37 Labs: Short CBC 11/04/17 Range/Units 03:37 WBC 7.8 (4.3-11.1) K/mcL Hgb 10.9 L (11.5-15.4) g/dL Hct 34.9 L (35.3-44.9) % Plt Count 138 L (140-400) K/mcL Neutrophils # 2.5 (1.6-8.9) K/mcL BMP 11/04/17 03:37 Sodium 142 Potassium 4.0 Chloride 112 H Carbon Dioxide 26 BUN 30 H Creatinine 0.86 Glucose 88 Calcium 8.8 - ABG Interpretation ABG results: PT/INR, D-dimer PT 13.8 Seconds (9.4-12.1) H 11/04/17 03:37 Consult Discharge Plan - Plan Referrals: Carlos Chao MD [Partnered Physician] - 12/05/17 10:30 am Aquino,Lisa Mckeon CNP [Primary Care Provider] - 11/05/17 3:00 pm
[2017-11-04] MEDS: Methocarbamol 500 MG TABLET PO SCH (20:34)
[2017-11-04] MEDS: Gabapentin 100 MG CAPSULE PO SCH (20:34)
[2017-11-05] MEDS: *HR* Enoxaparin 60 MG/0.6 ML SYRINGE SQ SCH ×2 (06:17→17:43)
[2017-11-05 06:57] LABS: Basophils % 0.3 %; Eosinophils # 0.1 K/mcL (0.0-0.6); Eosinophils % 1.9 %; Hematocrit 34.5 % (35.3-44.9); Hemoglobin 11.2 g/dL (11.5-15.4); Immature Granulocytes % 0.2 % (0-4); Lymphocytes # 3.3 K/mcL (0.6-4.6); Lymphocytes % 53.3 %; Mean Corpuscular HGB Conc 32.5 g/dL (31.6-35.5); Mean Corpuscular Hemoglobin 29.9 pg (28.0-33.3); Mean Platelet Volume 11.5 fL (9.4-12.4); Monocytes # 0.6 K/mcL (0.0-1.3); Neutrophils # 2.1 K/mcL (1.6-8.9); Platelet Count 129 K/mcL (140-400); Red Blood Count 3.75 M/mcL (3.82-4.97); Red Cell Distribution Width 13.6 % (11.5-14.5); Segmented Neutrophils % 34.3 %
[2017-11-05 07:02] LABS: INR 1.2; Prothrombin Time 13.4 Seconds (9.4-12.1)
[2017-11-05 07:21] LABS: BUN/Creatinine Ratio 46 (6-26); Blood Urea Nitrogen 33 mg/dL (8-23); Calcium 8.7 mg/dL (8.6-10.3); Carbon Dioxide 24 mEq/L (23-29); Chloride 111 mEq/L (98-107); Glucose 88 mg/dL (70-105); Osmolality,Calculated 297 (280-300); Potassium 3.8 mEq/L (3.5-5.1); Sodium 140 mEq/L (136-145); eGFR For African Americans > 60 (> 60); eGFR For Non-African Americans > 60 (> 60)
[2017-11-05] MEDS: amLODIPine 5 MG TABLET PO SCH (08:35)
[2017-11-05] MEDS: Aspirin Enteric Coated 81 MG Tablet PO SCH (08:35)
--- NOTE | 2017-11-05 09:39 | Event Note ---
Date of Encounter: 11/05/17 Time of Encounter: 09:37 - Cardiology Event Note Patient with atrial fibrillation. Started on rhythmol this admission. Patient is still atrial fibrillation this am. Plan for MANI guided cardioversion today. Risks versus benefits of MANI/DCCV explained to patient. Patient states understanding and agreeable to proceed. Will send referral to coumadin clinic. Further recommendations pending MANI/DCCV.
[2017-11-05] MEDS ORDERED: Lidocaine Viscous Oral Soln 15 ML SOLUTION MM PRN (12:48)
[2017-11-05] MEDS ORDERED: Tetracaine/Benzocaine/Butamben 200MG/SPRAY (100SPY/BOT) MM ONE (12:48)
[2017-11-05] MEDS ORDERED: 0.9 % Sodium Chloride 500 ML IVC ONE (12:48)
[2017-11-05] MEDS: *HR* Midazolam HCl 5 MG/5 ML VIAL IVP PRN ×3 (13:15→13:35)
[2017-11-05] MEDS: *HR* FentaNYL (PF) 100 MCG/2 ML VIAL IVP PRN ×3 (13:15→13:35)
--- NOTE | 2017-11-05 15:53 | Event Note ---
Date of Encounter: 11/05/17 Time of Encounter: 15:51 - Cardiology Event Note MANI unsuccessful. Discussed with patient and family at bedside. Will discontinue rhythm control (rhythmol) due to unable to perform MANI. Continue rate control. Cardiology will continue to monitor.
[2017-11-05] MEDS ORDERED: *HR* Warfarin 3 MG TABLET PO ONE (18:00)
[2017-11-05] MEDS: Methocarbamol 500 MG TABLET PO SCH (20:12)
[2017-11-05] MEDS: Gabapentin 100 MG CAPSULE PO SCH (20:13)
--- NOTE | 2017-11-06 01:34 | Internal Med Progress Note ---
Date of Encounter: 11/05/17 Time of Encounter: 16:36 - Assessment and plan (1) Atrial fibrillation with RVR Current Visit: Yes Status: Acute Assessment and plan: HR overnight and this AM ranging 100-120. Off cardizem drip. Troponin negative x3, TSH wnl, Last stress (nuclear) 2015, negative for ischemia Cardiology consulted, recommendations appreciated - Metoprolol 25 mg BID - Lovenox bridge to coumadin MANI cardioversion unsuccessful, will be monitored for tonight. Rhythmol discontinued, focus will be on rate control. (2) Hypertension Current Visit: Yes Status: Acute Assessment and plan: Currently normal range Norvasc 5 mg daily Losartan 50 mg daily Metoprolol 25 mg PO Hold clonidine Qualifiers: Hypertension type: essential hypertension Qualified Code(s): I10 - Essential (primary) hypertension (3) DVT prophylaxis Current Visit: Yes Status: Acute Assessment and plan: Lovenox bridging to coumadin - Subjective Interval history: No acute events overnight. She denies chest pain, sob, n/v, diaphoresis. - Constitutional Vitals: Temp Pulse Resp BP Pulse Ox 98.2 F 94 16 103/59 94 11/05/17 23:05 11/05/17 23:05 11/05/17 23:05 11/05/17 23:05 11/05/17 23:05 General appearance: Present: A&O X 3, pleasant, no acute distress, answers questions appropriately - Head Head exam: Present: atraumatic, normocephalic - Eye Eye exam: Present: PERRL, conjuntiva pink, sclera anicteric Pupils: Present: PERRL - Neck Neck exam general surgery: Present: supple, trachea midline. Absent: lymphadenopathy - Respiratory Respiratory exam: Present: CTAB. Absent: accessory muscle use, rales, rhonchi, wheezes - Cardiovascular Cardiovascular exam: Present: irregular rhythm, +S1, +S2. Absent: diastolic murmur, gallop, rubs, systolic murmur - GI/Abdominal GI/Abdominal exam: Present: normal bowel sounds, soft, no peritoneal signs. Absent: distended, tenderness - Extremities Exam Extremities exam: Present: warm, radial pulses palpable and symmetrical. Absent : calf tenderness, cyanotic, pedal edema - Neurological Exam Neurological exam: Present: CN II-XII intact, oriented X3, no focal deficits. Absent: pronater drift, facial droop, speech deficit - Skin Skin exam: Present: dry, intact Internal Medicine: Result - Labs CBC & Chem 7: 11/05/17 06:17 11/05/17 06:17 Labs: Short CBC 11/05/17 Range/Units 06:17 WBC 6.2 (4.3-11.1) K/mcL Hgb 11.2 L (11.5-15.4) g/dL Hct 34.5 L (35.3-44.9) % Plt Count 129 L (140-400) K/mcL Neutrophils # 2.1 (1.6-8.9) K/mcL BMP 11/05/17 06:17 Sodium 140 Potassium 3.8 Chloride 111 H Carbon Dioxide 24 BUN 33 H Creatinine 0.71 Glucose 88 Calcium 8.7 - ABG Interpretation ABG results: PT/INR, D-dimer PT 13.4 Seconds (9.4-12.1) H 11/05/17 06:17 - Impressions Impressions Transesophageal w/Cardioversion 11/05/17 09:36 Impressions: Study cancelled. Unable to intubate patient with probe. Medication Given: Time Medication Dose Units Route 13:15 Versed 2 mg IV 13:15 Fentanyl 25 mcg IV 13:20 Versed 2 mg IV 13:20 Fentanyl 25 mcg IV 13:35 Versed 2 mg IV 13:35 Fentanyl 25 mcg IV Findings: Study Quality * Study cancelled. Unable to intubate patient with probe. Consult Discharge Plan - Plan Referrals: Carlos Chao MD [Partnered Physician] - 12/05/17 10:30 am Aquino,Lisa Mckeon CNP [Primary Care Provider] - 11/05/17 3:00 pm
[2017-11-06] MEDS: *HR* Enoxaparin 60 MG/0.6 ML SYRINGE SQ SCH (05:16)
[2017-11-06 07:04] LABS: Basophils % 0.5 %; Eosinophils # 0.1 K/mcL (0.0-0.6); Eosinophils % 1.9 %; Hematocrit 33.7 % (35.3-44.9); Hemoglobin 10.9 g/dL (11.5-15.4); Immature Granulocytes % 0.1 % (0-4); Lymphocytes # 4.4 K/mcL (0.6-4.6); Lymphocytes % 59.1 %; Mean Corpuscular HGB Conc 32.3 g/dL (31.6-35.5); Mean Corpuscular Hemoglobin 29.7 pg (28.0-33.3); Mean Corpuscular Volume 91.8 fL (83.0-100.0); Mean Platelet Volume 11.5 fL (9.4-12.4); Monocytes # 0.7 K/mcL (0.0-1.3); Monocytes % 9.1 %; Neutrophils # 2.2 K/mcL (1.6-8.9); Platelet Count 126 K/mcL (140-400); Red Blood Count 3.67 M/mcL (3.82-4.97); Red Cell Distribution Width 13.7 % (11.5-14.5); Segmented Neutrophils % 29.3 %
[2017-11-06 07:06] LABS: INR 1.5; Prothrombin Time 16.8 Seconds (9.4-12.1)
[2017-11-06 07:19] LABS: BUN/Creatinine Ratio 40 (6-26); Blood Urea Nitrogen 26 mg/dL (8-23); Calcium 8.5 mg/dL (8.6-10.3); Carbon Dioxide 25 mEq/L (23-29); Chloride 112 mEq/L (98-107); Glucose 90 mg/dL (70-105); Osmolality,Calculated 296 (280-300); Potassium 3.7 mEq/L (3.5-5.1); Sodium 141 mEq/L (136-145); eGFR For African Americans > 60 (> 60); eGFR For Non-African Americans > 60 (> 60)
[2017-11-06] MEDS: Aspirin Enteric Coated 81 MG Tablet PO SCH (08:23)
[2017-11-06] MEDS: amLODIPine 5 MG TABLET PO SCH (08:23)
--- NOTE | 2017-11-06 10:36 | Cardiology Progress Note ---
Date of Encounter: 11/06/17 Time of Encounter: 08:45 Assessment and Plan (1) PAF (paroxysmal atrial fibrillation) Current Visit: Yes Status: Acute Per cardiology: -ECG on this admission demonstrates atrial fibrillation with RVR, QRS 69ms. -Chads Vasc score is 3 (HTN, Age, FM). On lovenox and coumadin. INR 1.3. -Moderately dilated LA. Normal LVEF. -Continue Rhythmol. Started on rhythmol and is s/p 6 total doses. -Was started on rhythmol. Attempted MANI yesterday, however unsuccessful. Rhythmol stopped, beta kera increased. -Since unable to perform MANI, will persue rate control strategy at this point. Continue beta kera. -Can consider antiarrythmic admission/DCCV in outpatient setting pending INRs therapeutic for 30 days. Patient educated and states understanding. -Patient educated to keep HR and BP log and to call cardiology for HRs consistently above 100. Patient states understanding. -Cardiology will sign off and will follow in outpatient setting. Follow up set. Discussion w patient/family: The assessment and plan as outlined above was discussed with the patient who expressed understanding and agreement. All questions were answered. Thank you for involving us in the care of your patient. Please call with any questions. Discussed and reviewed with . Subjective Principal diagnosis: PAF Interval history: Patient states she feel ok today. Denies complaints. Objective Vital Signs, Last 4 Hours Temp Pulse Resp BP Pulse Ox 11/06/17 07:51 98.2 F 91 16 131/77 93 General: Conversant, No Apparent Distress HEENT: Atraumatic, Normocephaly, Mucus Membranes Moist Neck: No JVD, Normal carotid pulses Cardiac: Normal S1 and S2, No Murmur, Other (Irregularly irregular) Lungs: Normal Breath Sounds, No Wheeze, Rales, Rhonchi Neuro: Alert and responsive, No focal deficits noted Abdomen: Soft, Non-Tender Skin: No rashes noted on visualized skin Musculoskeletal: No Chest Wall Tenderness Extremities: No Clubbing, No Cyanosis, No Edema, Normal Pulses Results 11/06/17 06:30 11/06/17 06:30 Lab Results Impressions Transesophageal w/Cardioversion 11/05/17 09:36 Impressions: Study cancelled. Unable to intubate patient with probe. Medication Given: Time Medication Dose Units Route 13:15 Versed 2 mg IV 13:15 Fentanyl 25 mcg IV 13:20 Versed 2 mg IV 13:20 Fentanyl 25 mcg IV 13:35 Versed 2 mg IV 13:35 Fentanyl 25 mcg IV Findings: Study Quality * Study cancelled. Unable to intubate patient with probe. Active Medications Amlodipine Besylate (Norvasc) 5 mg PO DAILY [facility] PRN Reason: Protocol Stop: 05/04/18 09:01 Last Admin: 11/06/17 08:23 Dose: 5 mg Aspirin (Aspirin Ec) 81 mg PO DAILY [facility] Stop: 05/04/18 09:01 Last Admin: 11/06/17 08:23 Dose: 81 mg Enoxaparin Sodium (Lovenox) 50 mg 1 mg/kg (50 mg) SQ Q12HR [facility] PRN Reason: Protocol Stop: 05/04/18 18:01 Last Admin: 11/06/17 05:16 Dose: 50 mg Gabapentin (Neurontin) 200 mg PO HS [facility] Stop: 05/03/18 21:01 Last Admin: 11/05/17 20:13 Dose: 200 mg Losartan Potassium (Cozaar) 50 mg PO DAILY [facility] Stop: 05/04/18 09:01 Last Admin: 11/06/17 08:23 Dose: 50 mg Methocarbamol (Robaxin) 500 mg PO HS [facility] Stop: 05/03/18 21:01 Last Admin: 11/05/17 20:12 Dose: 500 mg Metoprolol Tartrate (Lopressor) 50 mg PO BID [facility] Stop: 05/07/18 21:01 Last Admin: 11/06/17 08:23 Dose: 50 mg Naloxone HCl (Narcan) 0.4 mg IVP Q2MIN PRN PRN Reason: SEE COMMENTS Stop: 05/03/18 20:03 Warfarin Sodium (Coumadin Perpt) 1 each PO DAILY@1800 PRN PRN Reason: SEE COMMENTS Stop: 05/04/18 18:01 Warfarin Sodium (Coumadin) 3 mg PO 1800 ONE Stop: 11/06/17 18:01 - Imaging and Cardiology Chest Xray: report reviewed Echo: report reviewed - EKG Interpretation EKG results cardiology: other (Telemetry reviewed with average HR previous 12 hours noted to be 99, atrial fibrillation.) Consult Discharge Plan - Plan Referrals: Carlos Chao MD [Partnered Physician] - 12/05/17 10:30 am Aquino,Lisa Mckeon CNP [Primary Care Provider] -
[2017-11-06 11:40] VITALS: BP 96/62
--- NOTE | 2017-11-06 13:15 | Discharge Summary ---
Orders not resulted at time of discharge: Pending orders 11/02/17 13:27 ECG 12 lead ECG [ECG] Stat 11/05/17 12:15 EKG [ECG 12 lead ECG] [ECG] Stat 11/07/17 04:00 PT/INR [Prothrombin Time INR] [COAG] AM 0400 11/08/17 04:00 PT/INR [Prothrombin Time INR] [COAG] AM 0400 11/09/17 04:00 PT/INR [Prothrombin Time INR] [COAG] AM 0400 11/10/17 04:00 PT/INR [Prothrombin Time INR] [COAG] AM 0400 Date of Encounter: 11/06/17 Time of Encounter: 13:10 - Discharge Diagnosis (1) Hypertension Priority: Secondary Status: Chronic Comments: Blood pressure is stable continue home medications Qualifiers: Hypertension type: essential hypertension Qualified Code(s): I10 - Essential (primary) hypertension (2) PAF (paroxysmal atrial fibrillation) Priority: Primary Status: Acute Comments: EKG on admission demonstrated atrial fibrillation with rapid ventricular response. Chads fast score was 3. The patient was on Lovenox as a bridge to Coumadin with an INR of 1.3. She was started on Rythmol and had a total of 6 doses. Attempted a MANI on which was unsuccessful. Rythmol was stopped and her beta kera was increased. Coumadin will be 2.5 mg daily dose and she will follow-up at the Coumadin clinic on Sunday. Cardiology states since they were unable to perform the MANI they will pursue rate control strategy at this point and continue the beta kera. Can consider an antiarrhythmic admission/DC CV in the outpatient setting pending INRs therapeutic for 30 days. The patient was educated by cardiology and verbalized understanding. The patient was educated on keeping her blood pressure and heart rate log and to call cardiology for any heart rates consistently above 100. The patient stated understanding. The patient will follow-up with cardiology at a set appointment which has been discussed with the patient.. Hospital course: Ms. Reyes is a 77 year old female who was known to have poorly controlled hypertension on different antihypertensive medications. She went to her PCP for evaluation of weakness and intermittent palpitations. EKG G was done and was suggestive atrial fibrillation with a rapid ventricular response. Her ventricular rate was 1:30. She was sent to the emergency room for further evaluation. She is known to our cardiology department. A loop recorder was placed by EP service until October 25 of this month that did not show any evidence of arrhythmias patient's symptoms had started less than 24 hours ago. She was evaluated including lab work and chest x-ray and EKG. She was given IV Lopressor. She was also given subcutaneous Lovenox. Her past medical history is significant for atrial fibrillation and hypertension and she was a never smoker. MANI was attempted and was unsuccessful on 11/05/17. Medications were adjusted and she will follow up with cardiology in the outpatient clinic. She will also presents to the Coumadin clinic for management of her Coumadin therapy. She was discharged on Coumadin at 2.5 mg daily with an INR of 1.5 Discharge discussed with: patient, nurse - Time Spent with Patient Total time spent providing and/or coordinating discharge services: Less than 30 minutes - Discharge Medications Prescriptions: Metoprolol [Lopressor] 50 mg PO BID #60 tablet Warfarin perPT [Coumadin perPT] 2.5 mg PO DAILY@1800 #30 tab Home Medications: Fluticasone Propionate Nasal [Flonase] 1 spr NS HS PRN 06/14/16 [History] Losartan Potassium [Cozaar] 50 mg PO QAM 06/14/16 [History] Methocarbamol [Robaxin] 500 mg PO BID 06/14/16 [History] Promethazine [Phenergan] 25 mg PO HS PRN 06/14/16 [History] amLODIPine [Norvasc] 5 mg PO QPM 06/14/16 [History] cloNIDine HCl [CloNIDine HCl] 0.05 mg PO BID PRN 06/14/16 [History] Acetaminophen w/Cod 300-30 mg [Tylenol w/Codeine #3] 1 each PO Q6HR PRN [History] Aspirin [Lo-Dose Aspirin EC] 81 mg PO DAILY 07/30/17 [History] Gabapentin [Neurontin] 300 mg PO BID 11/01/17 [History] Metoprolol [Lopressor] 50 mg PO BID #60 tablet 11/06/17 [Rx] Warfarin perPT [Coumadin perPT] 2.5 mg PO DAILY@1800 #30 tab 11/06/17 [Rx] Allergies/Adverse Reactions: 3 Allergy/AdvReac Type Severity Reaction Status Date / Time lisinopril Allergy Cough Verified 06/13/16 06:45 Penicillins [PCN] Allergy Itching Verified 06/13/16 06:45 Pneumococcal Vaccine AdvReac Redness of Verified 07/30/17 13:49 Skin Date of admission: 11/01/17 21:51 Primary care physician: Lisa Aquino CNP Discharging clinician: Britta Kent Anticipated date of discharge: 11/06/17 - Constitutional Vitals: Temp Pulse Resp BP Pulse Ox 98.7 F 87 16 96/62 95 11/06/17 11:38 11/06/17 11:38 11/06/17 11:38 11/06/17 11:38 11/06/17 11:38 General appearance: Present: A&O X 3, pleasant, answers questions appropriately - Head Head exam: Present: atraumatic, normocephalic - Eye Eye exam: Present: PERRL, conjuntiva pink, sclera anicteric Pupils: Present: PERRL - Neck Neck exam general surgery: Present: supple, trachea midline. Absent: lymphadenopathy - Respiratory Respiratory exam: Present: CTAB. Absent: accessory muscle use, rales, rhonchi, wheezes - Cardiovascular Cardiovascular exam: Present: irregular rhythm, +S1, +S2. Absent: diastolic murmur, gallop, rubs, systolic murmur, tachycardia - GI/Abdominal GI/Abdominal exam: Present: normal bowel sounds, soft, no peritoneal signs. Absent: distended, tenderness - Extremities Exam Extremities exam: Present: warm, radial pulses palpable and symmetrical. Absent : calf tenderness, cyanotic, pedal edema - Neurological Exam Neurological exam: Present: CN II-XII intact, oriented X3, no focal deficits. Absent: pronater drift, facial droop, speech deficit - Skin Skin exam: Present: dry, intact, warm - Patient Status Disposition: Home, Self-Care Condition: Good Functional capacity at discharge: independent ambulation Overall status at discharge: patient is back to baseline - Discharge Instructions Instructions: Atrial Fibrillation (DC) Follow Up With: Coumadin, Clinic [Other] - 11/08/17 2:45 pm Carlos Chao MD [Partnered Physician] - 12/05/17 10:30 am Aquino,Lisa Mckeon CNP [Primary Care Provider] - 11/07/17 9:30 am - Diet and Activity Activity: resume usual activities as tolerated Diet: advance to your usual diet
[2017-11-06] MEDS ORDERED: *HR* Warfarin 3 MG TABLET PO ONE (18:00)
--- NOTE | 2017-11-08 20:47 | Electrocardiograph Report ---
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
--- NOTE | 2017-11-09 09:21 | Electrocardiograph Report ---
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
== END 2017-11-06 14:49 | disposition home or self-care (01) | DRG 310 ==
LOC: EMEROO 16:48 → 3BNU 21:51
PROVIDERS: ADMIT Internal Medicine; ATTEND Registered Nurse

== ENCOUNTER 2019-06-01 14:02 | Observation (INO) ==
--- NOTE | 2019-06-01 15:01 | Emergency Department Note ---
Disposition Clinical Impression: Transient cerebral ischemia Qualifiers: Transient cerebral ischemia type: unspecified Qualified Code(s): G45.9 - Transient cerebral ischemic attack, unspecified Disposition: Admitted As Inpatient Condition: Good Referrals: NONE,PCP [Primary Care Provider] - Forms: ED Satisfaction Letter Time of Disposition: 16:36 Neuro HPI - General Chief Complaint: ED Neuro Symptoms/Deficit Stated Complaint: Neuro S/sx. Time Seen by Provider: 06/01/19 14:10 Source: patient Limitations: no limitations Nursing Notes Reviewed: Yes Vital Signs Reviewed: Yes - History of Present Illness HPI Narrative: This is a 78-year-old female who presents today with a complaint of a brief episode of double vision. Patient states that she was in alevism today, when she started having double vision. 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 She denies any loss of vision. Patient states the double vision lasted about 5 minutes and went away. The patient states that she also had some tingling sensation in the left upper and lower extremity at this time. The symptoms have all since resolved. She has no neurologic complaints at this time. Severity: now resolved Quality: tingling Improves with: time On Anticoagulants: No Associated symptoms: Denies: confusion, chest pain, cough, diaphoresis - Related Data Home Medications: Home Medications Medication Instructions Recorded Confirmed Fluticasone Propionate Nasal 1 spr NS HS PRN 06/14/16 06/01/19 [Flonase] Losartan Potassium [Cozaar] 50 mg PO BID 06/14/16 06/01/19 Methocarbamol [Robaxin] 500 mg PO QID PRN 06/14/16 06/01/19 amLODIPine [Norvasc] 2.5 mg PO QPM 06/14/16 06/01/19 Warfarin [Coumadin] 5 mg PO [id number] 06/01/19 06/01/19 Warfarin [Coumadin] 7.5 mg PO MO 06/01/19 06/01/19 Previous Rx's Medication Instructions Recorded Metoprolol [Lopressor] 50 mg PO BID #60 tablet 11/06/17 Allergies/Adverse Reactions: Allergies Allergy/AdvReac Type Severity Reaction Status Date / Time lisinopril Allergy Cough Verified 06/01/19 14:05 Penicillins [PCN] Allergy Itching Verified 06/01/19 14:05 Pneumococcal Vaccine AdvReac Redness of Verified 06/01/19 14:05 Skin All systems ED: reviewed and negative except as stated. Constitutional: Denies: chills, weakness Eyes: Reports: vision change Cardiovascular: Denies: chest pain, palpitations Gastrointestinal: Denies: abdominal pain, nausea, vomiting Musculoskeletal: Denies: joint swelling, arthralgia Neurological: Reports: paresthesias. Denies: headache, weakness, numbness, confusion, abnormal gait Past Medical History - Past Medical History Medical history: Reports: atrial fibrillation, hypertension, valvular heart disease Psychiatric history: Reports: no psych history S[employer] WORKER history: Reports: no S[employer] WORKER history - Social History Smoking Status: Never smoker Smokeless Tobacco Status: No Alcohol use: Reports: none Drug use: Reports: none Physical Exam - General Limitations: no limitations General appearance: alert, in no apparent distress - Head Head exam: atraumatic, normocephalic, normal inspection - Eye Eye exam: Present: normal appearance, PERRL, EOMI - Expanded Eye Exam Pupils: Bilateral: reactive Sclera/Conjunctival: bilateral: normal inspection Posterior chamber: bilateral: normal inspection - ENT ENT exam: normal exam, normal oropharynx, mucous membranes moist - Expanded ENT Exam External ear exam: Present: normal external inspection Mouth exam: Present: normal external inspection Teeth exam: Present: normal inspection Throat exam: Present: normal inspection - Neck Neck exam: Present: normal inspection, full ROM, trachea midline - Chest Chest inspection: Present: normal inspection, symmetric chest wall rise - Respiratory Respiratory exam: Present: normal lung sounds bilaterally - Cardiovascular Cardiovascular exam: Present: regular rate, normal rhythm, normal heart sounds - Abdominal Exam Abdominal exam: Present: soft, Non-Tender. Absent: tenderness, distention, guarding, rebound, rigidity - Extremities Exam Extremities exam: Present: normal inspection, full ROM. Absent: tenderness, pedal edema - Expanded Upper Extremity Exam Shoulder exam: Present: normal inspection, full ROM Arm exam: Present: normal inspection, full ROM Elbow exam: Present: normal inspection, full ROM Forearm/Wrist exam: Present: normal inspection, full ROM Hand exam: Present: normal inspection, full ROM Vascular exam: Normal: capillary refill, radial pulse - Expanded Lower Extremity Exam Hip/Pelvis exam: Present: normal inspection, full ROM Upper leg exam: Present: normal inspection, full ROM Knee exam: Present: normal inspection, full ROM Lower leg exam: Present: normal inspection, full ROM Ankle exam: Present: normal inspection, full ROM Foot/toe exam: Present: normal inspection, full ROM Neurovascular/Tendon exam: Absent: motor deficit, sensory deficit, tendon deficit - Back Exam Back exam: Present: normal inspection, full ROM. Absent: tenderness - Neurological Exam Neurological exam: Present: alert, oriented X3, CN II-XII intact - Expanded Neurological Exam Patient oriented to: Present: person, place, time Speech: Present: fluid speech Cranial nerves: EOM function (II, III, IV, ): Normal, facial sensation (V): Normal Cerebellar function: finger to nose: Normal Motor strength - LUE: 5/5 Motor strength - RUE: 5/5 Motor strength - LLE: 5/5 Motor strength - RLE: 5/5 Sensory exam upper extremity: light touch: Normal Sensory exam lower extremity: light touch: Abnormal Left (This is chronic and unchanged.) Coma Scale Eye Opening: Spontaneous Coma Scale Motor Response: Obeys Commands Coma Scale Verbal Response: Oriented Coma Scale Total: 15 - Psychiatric Psychiatric exam: Present: normal affect, normal mood - Skin Skin exam: Present: warm, dry, intact, normal color Course Vital Signs Temperature 97.5 F L 06/01/19 14:03 Pulse Rate 103 06/01/19 14:03 Respiratory Rate 16 06/01/19 14:03 Blood Pressure 158/92 06/01/19 14:03 O2 Sat by Pulse Oximetry 97 06/01/19 14:03 Temperature 97.5 F L 06/01/19 14:03 Pulse Rate 103 06/01/19 14:03 Respiratory Rate 16 06/01/19 14:03 Blood Pressure 158/92 06/01/19 14:03 O2 Sat by Pulse Oximetry 97 06/01/19 14:03 Oxygen Delivery Oxygen Delivery Room Air Neuro Symptoms/Deficit - MDM Narrative Medical decision making narrative: Clinical picture is concerning for TIA especially given this weakness is of atrial fibrillation. Patient's symptoms are not resolved. Unremarkable neurologic exam. She would not be a candidate for TPA. EKG shows A. fib fibrillation with a ventricular rate of 110 bpm. Normal axis. No acute injury pattern. 1625 Patient reevaluated. Patient remains asymptomatic. Labs and imaging revealed. We will admit for TIA workup. Patient's care discussed with the hospitalist. Will admit. - Medical Records Medical records reviewed: Yes I reviewed the patient's medical records. - Lab Data Lab results reviewed: Yes I reviewed the patient's lab results. Result diagrams: 06/01/19 15:17 06/01/19 15:17 Lab Results 06/01/19 06/01/19 Range/Units 15:17 15:17 WBC 9.7 (4.3-11.1) K/mcL RBC 4.09 (3.82-4.97) M/mcL Hgb 12.5 (11.5-15.4) g/dL Hct 39.1 (35.3-44.9) % MCV 95.6 (83.0-100.0) fL MCH 30.6 (28.0-33.3) pg MCHC 32.0 (31.6-35.5) g/dL RDW 12.9 (11.5-14.5) % Plt Count 124 L (140-400) K/mcL MPV 11.6 (9.4-12.4) fL Immature Gran % 0.2 (0-4) % Seg Neutrophils % 42.9 % Lymphocytes % 50.3 % Monocytes % 6.2 % Eosinophils % 0.2 % Basophils % 0.2 % Neutrophils # 4.2 (1.6-8.9) K/mcL Lymphocytes # 4.9 H (0.6-4.6) K/mcL Monocytes # 0.6 (0.0-1.3) K/mcL Eosinophils # 0.0 (0.0-0.6) K/mcL Basophils # 0.0 (0.0-0.2) K/mcL Sodium 141 (136-145) mEq/L Potassium 4.7 (3.5-5.1) mEq/L Chloride 106 (98-107) mEq/L Carbon Dioxide 29 (23-29) mEq/L BUN 28 H (8-23) mg/dL Creatinine 0.69 (0.60-1.20) mg/dL Est GFR ( Amer) > 60 (> 60) Est GFR (Non-Af Amer) > 60 (> 60) BUN/Creatinine Ratio 41 H (6-26) Glucose 119 H (70-105) mg/dL Calculated Osmolality 299 (280-300) Calcium 9.4 (8.6-10.3) mg/dL - Radiology Data Radiology results reviewed: Yes I reviewed the patient's radiology results. - EKG Data EKG attestation: Yes I reviewed and interpreted this EKG. NIH Stroke Scale - Level of Consciousness LOC: Alert - LOC Questions LOC Questions: Answers both correctly - LOC Commands LOC Commands: Performs both correctly - Best Gaze Best Gaze: Normal - Visual Visual: No visual loss - Facial Palsy Facial Palsy: Normal - Motor Arms Motor Arm-Left: No drift for 10 seconds Motor Arm-Right: No drift for 10 seconds - Motor Legs Motor Leg-Left: No drift for 5 seconds Motor Leg-Right: No drift for 5 seconds - Limb Ataxia Limb Ataxia: Absent of affected limb too weak to perform exam - Sensory Sensory: Normal - Best Language Best Language: No aphasia - Dysarthria Dysarthria: Normal - Extinction and Inattention Extinction and Inattention: Normal - NIHSS Total Score NIHSS Total Score: 0 TPA Checklist - LKW: 3-4.5 hrs Add. Warnings/Precautions Patient/family understanding: The patient/family members have been counseled and understood the risk, benefit, and alternatives of treatment.
[2019-06-01 15:46] LABS: Basophils % 0.2 %; Eosinophils % 0.2 %; Hematocrit 39.1 % (35.3-44.9); Hemoglobin 12.5 g/dL (11.5-15.4); Immature Granulocytes % 0.2 % (0-4); Lymphocytes # 4.9 K/mcL (0.6-4.6); Lymphocytes % 50.3 %; Mean Corpuscular Hemoglobin 30.6 pg (28.0-33.3); Mean Corpuscular Volume 95.6 fL (83.0-100.0); Mean Platelet Volume 11.6 fL (9.4-12.4); Monocytes # 0.6 K/mcL (0.0-1.3); Monocytes % 6.2 %; Neutrophils # 4.2 K/mcL (1.6-8.9); Platelet Count 124 K/mcL (140-400); Red Blood Count 4.09 M/mcL (3.82-4.97); Red Cell Distribution Width 12.9 % (11.5-14.5); Segmented Neutrophils % 42.9 %; White Blood Count 9.7 K/mcL (4.3-11.1)
[2019-06-01 16:08] LABS: BUN/Creatinine Ratio 41 (6-26); Blood Urea Nitrogen 28 mg/dL (8-23); Calcium 9.4 mg/dL (8.6-10.3); Carbon Dioxide 29 mEq/L (23-29); Chloride 106 mEq/L (98-107); Glucose 119 mg/dL (70-105); Osmolality,Calculated 299 (280-300); Potassium 4.7 mEq/L (3.5-5.1); Sodium 141 mEq/L (136-145); eGFR For African Americans > 60 (> 60); eGFR For Non-African Americans > 60 (> 60)
[2019-06-01] MEDS ORDERED: Fluticasone Propionate Nasal 50 MCG/SPRAY BOTTLE NS PRN (17:02)
[2019-06-01] MEDS ORDERED: Methocarbamol 500 MG TABLET PO PRN (17:02)
--- NOTE | 2019-06-01 17:02 | Internal Med History&Physical ---
Date of Encounter: 06/01/19 Time of Encounter: 17:02 Internal Medicine - H&P: HPI History of present illness: Ms. Dahl is a 78 year old female with history of atrial fibrillation on coumadin, hypertension, valvular heart disease presentesd to ED due to double vision and left sided upper and lower extremity tingling. She was at [employer] today and first noticed had double vision that lasted 5 minutes. She had some tingling in her left arm and leg but notes that could be from lifting books earlier in the day. Symptoms resolved. She denies facial droop, facial weakness, extremity weakness, headaches, chest pain, shortness of breath, fevers/chills. In the ED CBC/BMP were unremarkable. An EKG showed afib with HR 110 bpm. She was hypertensive, given IV bolus of Cardizem and BP improved. CT head without contrast showed no acute process. Patient currently symptom free. Past Med Surg Social Fam HX - Past Medical History Medical history: atrial fibrillation, hypertension, valvular heart disease Additional medical history: mitral valve prolapse Psychiatric history: no psych history - Past Surgical History Additional surgical history: neck surgery - Social History Smoking Status: Never smoker Smokeless Tobacco Status: No Alcohol use: none Drug use: none - Family History Mother Hx Family Cardiac Disorders: Yes (afib, mitral valve prolapse) Father Hx Family Cardiac Disorders: Yes Hx Family Endocrine Disorder: Yes Internal Medicine - H&P: Meds Fluticasone Propionate Nasal [Flonase] 1 spr NS HS PRN 06/14/16 [History] Losartan Potassium [Cozaar] 50 mg PO BID 06/14/16 [History] Methocarbamol [Robaxin] 500 mg PO QID PRN 06/14/16 [History] amLODIPine [Norvasc] 2.5 mg PO QPM 06/14/16 [History] Metoprolol [Lopressor] 50 mg PO BID #60 tablet 11/06/17 [Rx] Warfarin [Coumadin] 5 mg PO SUTUWETHFRSA 06/01/19 [History] Warfarin [Coumadin] 7.5 mg PO MO 06/01/19 [History] Allergy/AdvReac Type Severity Reaction Status Date / Time lisinopril Allergy Cough Verified 06/01/19 14:05 Penicillins [PCN] Allergy Itching Verified 06/01/19 14:05 Pneumococcal Vaccine AdvReac Redness of Verified 06/01/19 14:05 Skin All Systems PM: A 10-system review of systems was performed and is negative for pertinent findings except as documented above in the HPI. - Constitutional Vitals: Temp Pulse Resp BP Pulse Ox 97.5 F L 103 16 158/92 97 06/01/19 14:03 06/01/19 14:03 06/01/19 14:03 06/01/19 14:03 06/01/19 14:03 General appearance: Present: A&O X 3 Exam: . - Head Head exam: Present: atraumatic, normocephalic - Eye Eye exam: Present: PERRL, conjuntiva pink, sclera anicteric Pupils: Present: PERRL - Neck Neck exam general surgery: Present: supple, trachea midline. Absent: lymphadenopathy - Respiratory Respiratory exam: Present: CTAB. Absent: accessory muscle use, rales, rhonchi, wheezes - Cardiovascular Cardiovascular exam: Present: RRR, +S1, +S2. Absent: diastolic murmur, gallop, rubs, systolic murmur - GI/Abdominal GI/Abdominal exam: Present: normal bowel sounds, soft, no peritoneal signs. Absent: distended, tenderness - Extremities Exam Extremities exam: Present: warm, radial pulses palpable and symmetrical. Absent: calf tenderness, cyanotic, pedal edema - Neurological Exam Neurological exam: Present: CN II-XII intact, oriented X3, no focal deficits. Absent: pronater drift, facial droop, speech deficit - Expanded Neurological Exam Neurological exam expanded: Absent: ataxia, expressive aphasia, memory loss- recent event, receptive aphasia Patient oriented to: Present: person, place, time Speech: Absent: slurred Cranial Nerves: EOM's intact PM: Normal, nystagmus PM: Normal, tongue deviation PM: Normal Cerebellar function: finger to nose: Normal, heel to alfonso: Normal Upper motor neuron: pronator drift: Normal Sensory exam: lower extremity light touch: Normal, upper extremity light touch: Normal Neuro motor strength exam: LUE: 5, RUE: 5, LLE: 5, RLE: 5 DTR: patellar (L): 2+, patellar (R): 2+ - Skin Skin exam: Present: dry, intact Internal Med - H&P Results - Labs CBC & Chem 7: 06/01/19 15:17 06/01/19 15:17 Labs: Short CBC 06/01/19 Range/Units 15:17 WBC 9.7 (4.3-11.1) K/mcL Hgb 12.5 (11.5-15.4) g/dL Hct 39.1 (35.3-44.9) % Plt Count 124 L (140-400) K/mcL Neutrophils # 4.2 (1.6-8.9) K/mcL BMP 06/01/19 15:17 Sodium 141 Potassium 4.7 Chloride 106 Carbon Dioxide 29 BUN 28 H Creatinine 0.69 Glucose 119 H Calcium 9.4 - Impressions ITS Impressions Head CT 06/01/19 15:16 IMPRESSION: No acute intracranial abnormality identified. Ventriculomegaly, somewhat out of proportion to sulcal enlargement. That can be a sign of normal pressure hydrocephalus. Correlate clinically. D/ / Abilio Phan MD / Abilio Phan MD Interpreting Provider: Abilio hPan MD - Assessment and Plan (1) Transient cerebral ischemia Current Visit: Yes Status: Acute Assessment and plan: Possible TIA, [id number] score 4. Will do TIA workup. Patient unable to do MRI due to hardware in neck. Obtain Echocardiogram, CTA head/neck, lipid profile, check INR, continue coumadin. Qualifiers: Transient cerebral ischemia type: unspecified Qualified Code(s): G45.9 - Transient cerebral ischemic attack, unspecified (2) PAF (paroxysmal atrial fibrillation) Current Visit: No Status: Acute Assessment and plan: Keep HR <110 bpm. Resume home Cardizem, metoprolol Add IV Lopressor prn tachycardia Continue Coumadin, check INR (3) Hypertension Current Visit: No Status: Chronic Assessment and plan: Resume Cardizem, Norvasc, metoprolol Qualifiers: Hypertension type: essential hypertension Qualified Code(s): I10 - Essential (primary) hypertension (4) DVT prophylaxis Current Visit: No Status: Acute Assessment and plan: On coumadin, follow-up INR - Time Spent With Patient Total time spent is greater than 50% in coordination of care (as documented) at patient's floor/unit and/or counseling patient:
[2019-06-01] MEDS ORDERED: Nitroglycerin 0.4 MG TAB.SUBL SL PRN (17:08)
[2019-06-01] MEDS ORDERED: *HR* Metoprolol 5 MG/5 ML VIAL IVP PRN (17:08)
[2019-06-01 17:45] LABS: INR 2.3; Prothrombin Time 25.7 Seconds (9.4-12.1)
[2019-06-01] MEDS ORDERED: *HR* Warfarin 5 MG TABLET PO SCH (18:00)
[2019-06-01] MEDS ORDERED: Isovue-370 500 ML BOTTLE IVP ONE (18:01)
[2019-06-01] MEDS: amLODIPine 5 MG TABLET PO SCH (20:14)
[2019-06-02 02:22] LABS: INR 2.3; Prothrombin Time 26.1 Seconds (9.4-12.1)
[2019-06-02 02:31] LABS: Chol/HDL Ratio 2.7 (0-4.9)
--- NOTE | 2019-06-02 09:14 | Internal Med Progress Note ---
<Sd Jasso - Last Filed: 06/02/19 16:04> Hospitalist Progress Note - Encounter Date of Encounter: 06/02/19 - Exam Vitals: Temp Pulse Resp BP Pulse Ox 98.3 F 74 16 102/62 94 06/02/19 12:29 06/02/19 12:29 06/02/19 12:29 06/02/19 12:29 06/02/19 12:29 - Assessment and Plan (1) Transient cerebral ischemia Current Visit: Yes Status: Acute (2) PAF (paroxysmal atrial fibrillation) Current Visit: No Status: Acute (3) Hypertension Current Visit: No Status: Chronic (4) DVT prophylaxis Current Visit: No Status: Acute - Time Spent with Patient Total time spent is greater than 50% in coordination of care (as documented) at patient's floor/unit and/or counseling patient: Internal Medicine: Result - Labs CBC & Chem 7: 06/02/19 10:06 06/02/19 10:06 Labs: Short CBC 06/02/19 Range/Units 10:06 WBC 11.5 H (4.3-11.1) K/mcL Hgb 13.5 (11.5-15.4) g/dL Hct 42.7 (35.3-44.9) % Plt Count 155 (140-400) K/mcL Neutrophils # 4.2 (1.6-8.9) K/mcL BMP 06/01/19 06/02/19 15:17 10:06 Sodium 141 140 Potassium 4.7 4.2 Chloride 106 105 Carbon Dioxide 29 31 H BUN 28 H 23 Creatinine 0.69 0.79 Glucose 119 H 103 Calcium 9.4 9.3 - ABG Interpretation ABG results: PT/INR, D-dimer PT 26.1 Seconds (9.4-12.1) H 06/02/19 01:38 - Impressions Impressions Head CTA 06/01/19 18:41 IMPRESSION: Unremarkable CTA of the head and neck. D/ / Mendez Sessions / Mendez Sessions Interpreting Provider: Mendez Cook Neck CTA 06/01/19 18:41 IMPRESSION: Unremarkable CTA of the head and neck. D/ / Mendez Sessions / Mendez Sessions Interpreting Provider: Mendez Cook Consult Discharge Plan - Plan Instructions: Transient Ischemic Attack (DC), Atrial Fibrillation (DC), Ischemic Stroke (DC) Referrals: Lisa Aquino CNP [Primary Care Provider] - 06/10/19 9:45 am - Attending Attestation I saw evaluated and examined this patient and reviewed objective data including labs and my medical decision-making was reviewed with the Resident Physician/Medical Student. I agree with the documented findings, disposition and treatment plan as described except to any changes set forth below. We independently had [id number] contact with the patient. <Mo Benjamin I - Last Filed: 06/02/19 19:13> Hospitalist Progress Note - Encounter Date of Encounter: 06/02/19 Time of Encounter: 08:40 - Subjective Interval History: patient is seen and examined today . she is doing well . denies chest pain or SOB . no headaches , no fever or chills , no N/V/D /C , no weakness , no blurry vision - Exam Vitals: Temp Pulse Resp BP Pulse Ox 97.9 F 78 16 144/68 98 06/02/19 07:06 06/02/19 07:06 06/02/19 07:06 06/02/19 07:06 06/02/19 07:06 Exam: General: no acute distress , A&AX3 HEENT: Atraumatic, Normocephaly, sclera unicteric Neck: supple , Full ROM , trachea midline Cardiac: RRR , S1+. S2+ Lungs: Normal Breath Sounds Bilaterally, No Wheeze, Rales, Rhonchi Abdomen: Soft, Non-Tender ,no organomegaly , +bowel sounds Extremities: No Clubbing, No Cyanosis,or edema , Normal Pulses Skin : intact , Normal color Psychiatric : normal affect, normal mood Nuero : alert, normal gait, oriented X3 - Assessment and Plan (1) Transient cerebral ischemia Current Visit: Yes Status: Acute Assessment and Plan: patient had double vision anf left upper and lower extrimity weakness CT head unremarkable CTA of head and neck is negative lipid panel is normal continue coumadin. (2) Atrial fibrillation with RVR Current Visit: No Status: Acute Assessment and Plan: Keep HR <110 bpm. Resume home Cardizem, metoprolol Add IV Lopressor prn tachycardia Continue Coumadin, check INR (3) Hypertension Current Visit: No Status: Chronic Assessment and Plan: Resume Cardizem, Norvasc, metoprolol DVT Prophylaxis: coumadin - Time Spent with Patient Total time spent is greater than 50% in coordination of care (as documented) at patient's floor/unit and/or counseling patient: Internal Medicine: Result - Labs CBC & Chem 7: 06/02/19 10:06 06/02/19 10:06 Labs: Short CBC 06/01/19 Range/Units 15:17 WBC 9.7 (4.3-11.1) K/mcL Hgb 12.5 (11.5-15.4) g/dL Hct 39.1 (35.3-44.9) % Plt Count 124 L (140-400) K/mcL Neutrophils # 4.2 (1.6-8.9) K/mcL BMP 06/01/19 15:17 Sodium 141 Potassium 4.7 Chloride 106 Carbon Dioxide 29 BUN 28 H Creatinine 0.69 Glucose 119 H Calcium 9.4 - ABG Interpretation ABG results: PT/INR, D-dimer PT 26.1 Seconds (9.4-12.1) H 06/02/19 01:38 - Impressions Impressions Head CT 06/01/19 15:16 IMPRESSION: No acute intracranial abnormality identified. Ventriculomegaly, somewhat out of proportion to sulcal enlargement. That can be a sign of normal pressure hydrocephalus. Correlate clinically. D/ / Abilio Phan MD / Abilio Phan MD Interpreting Provider: Abilio Phan MD Head CTA 06/01/19 18:41 IMPRESSION: Unremarkable CTA of the head and neck. D/ / Mendez Sessions / Mendez Cook Interpreting Provider: Mendez Cook Neck CTA 06/01/19 18:41 IMPRESSION: Unremarkable CTA of the head and neck. D/ / Mendez Sessions / Mendez Sessions Interpreting Provider: Mendez Sessions <Sd Jasso - Last Filed: 06/02/19 16:04> (1) Transient cerebral ischemia Qualifiers: Transient cerebral ischemia type: unspecified Qualified Code(s): G45.9 - Transient cerebral ischemic attack, unspecified (3) Hypertension Qualifiers: Hypertension type: essential hypertension Qualified Code(s): I10 - Essential (primary) hypertension <Mo Benjamin I - Last Filed: 06/02/19 19:13> (1) Transient cerebral ischemia Qualifiers: Transient cerebral ischemia type: unspecified Qualified Code(s): G45.9 - Transient cerebral ischemic attack, unspecified (3) Hypertension Qualifiers: Hypertension type: essential hypertension Qualified Code(s): I10 - Essential (primary) hypertension
[2019-06-02 10:21] LABS: Basophils % 0.3 %; Eosinophils # 0.1 K/mcL (0.0-0.6); Eosinophils % 0.6 %; Hematocrit 42.7 % (35.3-44.9); Hemoglobin 13.5 g/dL (11.5-15.4); Immature Granulocytes % 0.3 % (0-4); Lymphocytes # 6.4 K/mcL (0.6-4.6); Lymphocytes % 55.8 %; Mean Corpuscular HGB Conc 31.6 g/dL (31.6-35.5); Mean Corpuscular Hemoglobin 30.5 pg (28.0-33.3); Mean Corpuscular Volume 96.4 fL (83.0-100.0); Mean Platelet Volume 11.2 fL (9.4-12.4); Monocytes # 0.8 K/mcL (0.0-1.3); Neutrophils # 4.2 K/mcL (1.6-8.9); Platelet Count 155 K/mcL (140-400); Red Blood Count 4.43 M/mcL (3.82-4.97); Red Cell Distribution Width 12.9 % (11.5-14.5); White Blood Count 11.5 K/mcL (4.3-11.1)
[2019-06-02 10:34] LABS: BUN/Creatinine Ratio 29 (6-26); Blood Urea Nitrogen 23 mg/dL (8-23); Calcium 9.3 mg/dL (8.6-10.3); Carbon Dioxide 31 mEq/L (23-29); Chloride 105 mEq/L (98-107); Glucose 103 mg/dL (70-105); Magnesium 2.2 mg/dL (1.6-2.6); Osmolality,Calculated 294 (280-300); Potassium 4.2 mEq/L (3.5-5.1); Sodium 140 mEq/L (136-145); eGFR For African Americans > 60 (> 60); eGFR For Non-African Americans > 60 (> 60)
--- NOTE | 2019-06-02 13:25 | Electrocardiograph Report ---
[address] [place], [place] [address] Test Date: 2019-06-01 Pat Name: Amaya Dahl Department: [id number] Room: 3B Gender: F Door Trimmer: : [id number] Requested By: Rick Vallejo Order Number: [id number] Reading MD: Storm Mcintosh Measurements Intervals [place] Rate: 110 P: ID: QRS: [id number] QRSD: 89 T: 53 QT: 340 QTc: 435 Interpretive Statements Atrial fibrillation Electronically Signed On 06-02-2019 13:23:00 EDT by Storm Mcintosh
[2019-06-02] MEDS: amLODIPine 5 MG TABLET PO SCH (17:15)
[2019-06-02] MEDS ORDERED: *HR* Warfarin 7.5 MG TABLET PO ONE (18:00)
[2019-06-02] MEDS ORDERED: Warfarin perPT PO PRN (18:00)
[2019-06-03 06:03] LABS: Basophils % 0.3 %; Eosinophils # 0.1 K/mcL (0.0-0.6); Hematocrit 39.6 % (35.3-44.9); Hemoglobin 12.6 g/dL (11.5-15.4); Immature Granulocytes % 0.1 % (0-4); Lymphocytes # 6.6 K/mcL (0.6-4.6); Lymphocytes % 61.4 %; Mean Corpuscular HGB Conc 31.8 g/dL (31.6-35.5); Mean Corpuscular Hemoglobin 30.1 pg (28.0-33.3); Mean Corpuscular Volume 94.5 fL (83.0-100.0); Mean Platelet Volume 11.4 fL (9.4-12.4); Monocytes # 0.9 K/mcL (0.0-1.3); Monocytes % 7.9 %; Neutrophils # 3.1 K/mcL (1.6-8.9); Platelet Count 116 K/mcL (140-400); Red Blood Count 4.19 M/mcL (3.82-4.97); Red Cell Distribution Width 12.6 % (11.5-14.5); Segmented Neutrophils % 29.3 %; White Blood Count 10.7 K/mcL (4.3-11.1)
[2019-06-03 06:24] LABS: BUN/Creatinine Ratio 40 (6-26); Blood Urea Nitrogen 28 mg/dL (8-23); Calcium 8.9 mg/dL (8.6-10.3); Carbon Dioxide 29 mEq/L (23-29); Chloride 106 mEq/L (98-107); Glucose 109 mg/dL (70-105); Osmolality,Calculated 300 (280-300); Potassium 4.4 mEq/L (3.5-5.1); Sodium 142 mEq/L (136-145); eGFR For African Americans > 60 (> 60); eGFR For Non-African Americans > 60 (> 60)
[2019-06-03 06:28] LABS: INR 3.5; Prothrombin Time 40.4 Seconds (9.4-12.1)
--- NOTE | 2019-06-03 10:10 | Discharge Summary ---
<Mo Benjamin I - Last Filed: 06/03/19 11:30> - NOTES TO OUTPATIENT PROVIDER Notes to Outpatient Provider: Patient is a known case of A fib on coumadin and xarelto .Patient had double vision anf left upper and lower extrimity weakness CT head unremarkable .TIA workup is unremarkable. Echo showed EF 55%, severly biartrial dilation , no PFO . Currently symptoms free . discharge home . follow up with cardiology Date of Encounter: 06/03/19 Time of Encounter: 09:30 - Discharge Diagnosis (1) Transient cerebral ischemia Priority: Primary Status: Acute Qualifiers: Transient cerebral ischemia type: unspecified Qualified Code(s): G45.9 - Transient cerebral ischemic attack, unspecified (2) Atrial fibrillation with RVR Priority: Secondary Status: Acute (3) Hypertension Priority: Secondary Status: Chronic Qualifiers: Hypertension type: essential hypertension Qualified Code(s): I10 - Essential (primary) hypertension Hospital course: Ms. Dahl is a 78 year old female with history of atrial fibrillation on coumadin, hypertension, valvular heart disease presentesd to ED due to double vision and left sided upper and lower extremity tingling. She was at [employer] when first noticed had double vision that lasted 5 minutes. She had some tingling in her left arm and leg .In the ED CBC/BMP were unremarkable. An EKG showed afib with HR 110 bpm. She was hypertensive, given IV bolus of Cardizem and BP improved. CT head without contrast showed no acute process. CTA of head and neck are unremarkable . ECHO showed EF 55%, severly biartrial dilation , no PFO Patient currently symptom free.will be discharged home on her home med . advised to follow up with cardiology for he biatrial dilation . - Time Spent with Patient Total time spent providing and/or coordinating discharge services: - Discharge Medications Prescriptions: Continued Fluticasone Propionate Nasal [Flonase] 1 spr NS HS PRN PRN Reason: Nasal Congestion Losartan Potassium [Cozaar] 50 mg PO BID amLODIPine [Norvasc] 2.5 mg PO QPM Methocarbamol [Robaxin] 500 mg PO QID PRN PRN Reason: Muscle Spasm Metoprolol [Lopressor] 50 mg PO BID #60 tablet Warfarin [Coumadin] 5 mg PO SUTUWETHFRSA Warfarin [Coumadin] 7.5 mg PO MO Home Medications: Fluticasone Propionate Nasal [Flonase] 1 spr NS HS PRN 06/14/16 [History] Losartan Potassium [Cozaar] 50 mg PO BID 06/14/16 [History] Methocarbamol [Robaxin] 500 mg PO QID PRN 06/14/16 [History] amLODIPine [Norvasc] 2.5 mg PO QPM 06/14/16 [History] Metoprolol [Lopressor] 50 mg PO BID #60 tablet 11/06/17 [Rx] Warfarin [Coumadin] 5 mg PO SUTUWETHFRSA 06/01/19 [History] Warfarin [Coumadin] 7.5 mg PO MO 06/01/19 [History] Allergies/Adverse Reactions: Allergy/AdvReac Type Severity Reaction Status Date / Time lisinopril Allergy Cough Verified 06/01/19 14:05 Penicillins [PCN] Allergy Itching Verified 06/01/19 14:05 Pneumococcal Vaccine AdvReac Redness of Verified 06/01/19 14:05 Skin Date of admission: 06/01/19 18:15 Primary care physician: Lisa Aquino, [employer] - Constitutional Vitals: Temp Pulse Resp BP Pulse Ox 97.7 F 86 16 138/74 96 06/03/19 07:07 06/03/19 07:07 06/03/19 07:07 06/03/19 07:07 06/03/19 07:07 General appearance: Present: A&O X 3 Exam: General: no acute distress , A&AX3 HEENT: Atraumatic, Normocephaly, sclera unicteric Neck: supple , Full ROM , trachea midline Cardiac: RRR , S1+. S2+ Lungs: Normal Breath Sounds Bilaterally, No Wheeze, Rales, Rhonchi Abdomen: Soft, Non-Tender ,no organomegaly , +bowel sounds Extremities: No Clubbing, No Cyanosis,or edema , Normal Pulses Skin : intact , Normal color Psychiatric : normal affect, normal mood Nuero : alert, normal gait, oriented X3 - Patient Status Disposition: Home, Self-Care Condition: Good Functional capacity at discharge: independent ambulation Overall status at discharge: patient is back to baseline - Discharge Instructions Instructions: Transient Ischemic Attack (DC), Atrial Fibrillation (DC), Ischemic Stroke (DC) Follow Up With: Lisa Aquino CNP [Primary Care Provider] - 06/10/19 9:45 am - Diet and Activity Activity: increase activity as tolerated Diet: low fat, low cholesterol <RomeroRoxi Bandarlissette - Last Filed: 06/03/19 15:25> Date of Encounter: 06/03/19 - Discharge Diagnosis (1) Transient cerebral ischemia Status: Acute Qualifiers: Transient cerebral ischemia type: unspecified Qualified Code(s): G45.9 - Transient cerebral ischemic attack, unspecified (2) PAF (paroxysmal atrial fibrillation) Status: Acute (3) Hypertension Status: Chronic Qualifiers: Hypertension type: essential hypertension Qualified Code(s): I10 - Essential (primary) hypertension (4) DVT prophylaxis Status: Acute Hospital course: Ms. Dahl is a 78 year old female - Time Spent with Patient Total time spent providing and/or coordinating discharge services: Date of admission: 06/01/19 18:15 Primary care physician: Lisa Aquino CNP - Constitutional Vitals: Temp Pulse Resp BP Pulse Ox 97.7 F 69 16 110/68 69 06/03/19 11:18 06/03/19 11:18 06/03/19 11:18 06/03/19 11:18 06/03/19 11:18 - Attending Attestation I saw evaluated and examined this patient and reviewed objective data including labs and my medical decision-making was reviewed with the Resident Physician/Medical Student. I agree with the documented findings, disposition and treatment plan as described except to any changes set forth below. We independently had [id number] contact with the patient. 78 year old male with afib on coumadin and hypertension presented for double vision and left sided extremity tingling. She was admitted for a TIA [place]. She had CT head unremarkable, CTA head/neck unremarkable. Echocardiogram showed biatrial enlargement, no thrombus or PFO. She was discharged home in stable condition, instructed to follow-up for echo findings. Symptoms have completely resolved.
[2019-06-03 11:20] VITALS: BP 110/68
== END 2019-06-03 13:53 | disposition home or self-care (01) ==
LOC: 3BNU 14:02 → EMEROOARM 14:02 → SUATTDRO 18:15 → 3BNU 18:55
PROVIDERS: ADMIT Internal Medicine; ATTEND Student in an Organized Health Care Education/Training Program